=== PATIENT | female | born 1990 | race Caucasian/White ===

== ENCOUNTER 2018-08-25 16:27 | Outpatient (REF) | payer BC, SELFPAY ==
[2018-08-25 21:02] LABS: Abs Immature Grans 0.02 k/cumm (0.0-0.09); Absolute Basophil Count 0.02 k/cumm (0.0-0.2); Absolute Eosinophil Count 0.09 k/cumm (0.0-0.7); Absolute Lymphocyte Count 1.24 k/cumm (1.2-3.4); Absolute Monocyte Count 0.38 k/cumm (0.11-0.7); Absolute Neutrophil Count 6.11 k/cumm (1.2-6.7); Basophils % 0.3; Eosinophils % 1.1; HCT 40.2 % (36.0-46.0); HGB 13.3 g/dL (12.0-15.5); Immature Grans % 0.3; Lymphocytes % 15.8; Mean Corp. HGB Concentration 33.1 g/dL (32.0-36.0); Mean Corpuscular Hemoglobin 30.9 pg (27.0-33.0); Mean Corpuscular Volume 93.5 fL (80-95); Mean Platelet Volume 9.6 fL (8.0-11.0); Monocytes % 4.8; Neutrophils % 77.7; Platelet Count 260 x1000/uL (130-400); RBC Distribution Width 13.1 % (11.7-14.6); White Blood Cell Count 7.86 k/cumm (4.4-10.8)
[2018-08-25 21:33] LABS: Iron 47 ug/dL (50-175); Total Iron Binding Capacity 331 ug/dL (250-450); Transferrin Sat 14 % (15-50)
[2018-08-25 21:39] LABS: ALT 74 U/L (12-78); AST 38 U/L (15-37); Albumin 4.1 g/dL (3.4-5.0); Alkaline Phosphatase 111 U/L (46-116); Anion Gap 10.4 mmol/L (3-11); BUN 12 mg/dL (7-18); C-Reactive Protein 0.99 mg/dL (0.0-0.3); CO2 26.6 mmol/L (21.0-32.0); CREATININE 0.79 mg/dL (0.55-1.02); Calcium 9.3 mg/dL (8.5-10.1); Chloride 103 mmol/L (98-107); Glucose 93 mg/dL (70-100); Sodium 140 mmol/L (136-145); TSH (W/Ref FT4) 1.17 uIU/mL (0.358-3.74); Total Protein 7.3 g/dL (6.4-8.2)
[2018-08-25 21:44] LABS: ESR 16 MM/HR (0-20)
[2018-08-25 22:16] LABS: Bilirubin, Total 0.4 mg/dL (0.2-1.0); Ferritin 81 ng/mL (8-388); Vitamin B12 1093 pg/mL (193-986)
== END 2018-08-25 16:47 ==
LOC: NCHCN 16:27
PROVIDERS: PCP Nurse Practitioner; Visit Provider Nurse Practitioner
DX: R53.83 Other fatigue (principal)
CPT/HCPCS: 80053; 85652; 82607; 82728; 83540; 83550; 84443; 85025; 86140

== ENCOUNTER 2018-08-31 13:03 | Outpatient (CLI) | payer BC, SELFPAY ==
[2018-09-01 09:23] LABS: HIV-1/2 Ag & Ab Screen Negative (NEGAT)
[2018-09-02 14:17] LABS: TB Interpretation Negative (NEGAT); TB1 Ag minus Nil 0.01 IU/mL
== END 2018-08-31 13:23 ==
PROVIDERS: PCP Nurse Practitioner; Visit Provider Nurse Practitioner
DX: R53.83 Other fatigue (principal); R61 Generalized hyperhidrosis; N95.1 Menopausal and female climacteric states
CPT/HCPCS: 36415; 87389; 86480

== ENCOUNTER 2018-09-02 14:04 | Outpatient (REF) | payer BC, SELFPAY ==
[2018-09-06 11:45] LABS: Helicobacter pylori Ag, Feces Negative (NEGAT)
== END 2018-09-02 14:24 ==
LOC: NCHCN 14:04
PROVIDERS: PCP Nurse Practitioner; Visit Provider Nurse Practitioner
DX: R53.83 Other fatigue (principal); R61 Generalized hyperhidrosis; N95.1 Menopausal and female climacteric states
CPT/HCPCS: 87338

== ENCOUNTER 2018-11-01 15:47 | Outpatient (REF) | payer BC, SELFPAY ==
[2018-11-01 22:05] LABS: Iron 73 ug/dL (50-175); Total Iron Binding Capacity 334 ug/dL (250-450); Transferrin Sat 22 % (15-50)
[2018-11-01 22:21] LABS: HCT 40.8 % (36.0-46.0); HGB 13.7 g/dL (12.0-15.5); Mean Corp. HGB Concentration 33.6 g/dL (32.0-36.0); Mean Corpuscular Hemoglobin 30.6 pg (27.0-33.0); Mean Corpuscular Volume 91.1 fL (80-95); Platelet Count 251 x1000/uL (130-400); RBC 4.48 m/cumm (4.00-5.20); White Blood Cell Count 7.04 k/cumm (4.4-10.8)
[2018-11-01 22:22] LABS: ALT 76 U/L (12-78); AST 50 U/L (15-37); Ferritin 81 ng/mL (8-388)
[2018-11-01 22:40] LABS: C-Reactive Protein 0.92 mg/dL (0.0-0.3)
== END 2018-11-01 16:07 ==
LOC: NCHCN 15:47
PROVIDERS: PCP Nurse Practitioner; Visit Provider Nurse Practitioner Family
DX: R79.89 Other specified abnormal findings of blood chemistry (principal); Q79.6 Ehlers-Danlos syndromes; E61.1 Iron deficiency
CPT/HCPCS: 85027; 82728; 83540; 83550; 84450; 84460; 86140

== ENCOUNTER 2019-02-01 15:47 | Outpatient (CLI) | payer BC, SELFPAY ==
[2019-02-06 14:38] LABS: Metanephrine, Free <0.20 nmol/L (<0.50); Normetanephrine, Free 0.66 nmol/L (<0.90)
== END 2019-02-01 16:07 ==
PROVIDERS: PCP Nurse Practitioner; Visit Provider Nurse Practitioner Family
DX: N95.1 Menopausal and female climacteric states (principal); R61 Generalized hyperhidrosis
CPT/HCPCS: 36415; 83835

== ENCOUNTER 2019-05-17 21:44 | Emergency (ER) | payer BC, SELFPAY ==
[2019-05-17 22:39] VITALS: BP 157/74; PULSE 90; RESP 18; TEMP 36.6; O2SAT 97
--- NOTE | 2019-05-17 23:28 | W.ED.GENAD ---
Discharge Plan Disposition Patient Disposition: HOME Condition: Stable Discharge Details Chief Complaint: Sorethroat Clinical Impression: URI (upper respiratory infection) Primary Care Provider: Caitlin Hu ED Provider: Burton El Home Meds and New Rx's Prescriptions: No Action acetaminophen [Tylenol] 325 mg Tablet 1,000 mg PO PRN PRNRF: 0 naproxen 250 mg Tablet 3 RF: 0 Discharge Instructions Instructions: Upper Respiratory Infection (ED) Additional Instructions: It is recommended that you continue to take [id number] cough and cold medications, get plenty of rest, and stay well-hydrated during illness. Return to the emergency department immediately for any new or significant worsening of your symptoms otherwise follow-up with your primary care provider as needed for reassessment Stand Alone Forms: Work Release Referrals: Caitlin Hu [Primary Care Provider] - (As needed for reassessment if not improving the next week) Discharge Data Discharge Date/Time-TO BE ENTERED AT DEPARTURE: 05/17/19 23:50 Medical Decision Making Nasal congestion, cough, cold symptoms for 5 days with worsening sore throat over the past 2 to 3 days. Patient states using multiple [id number] medications which are not helping. Physical exam shows clear lung sounds, mild clear fluid behind right TM otherwise unremarkable TM bilateral, patient does have some postnasal drip and cobblestoning noted to the posterior pharynx otherwise unremarkable HEENT exam, no lymphadenopathy, no signs of epiglottitis, peritonsillar abscess, retropharyngeal abscess, or life-threatening airway infection. medical staff services coordinator initiated protocol for rapid strep testing which was negative. Feel the patient's symptoms were likely upper respiratory tract infection and infectious in nature. Did discuss with patient risk versus benefit of steroids and decided to give patient single dose of Decadron in the emergency department due to severity of sore throat. Return precautions discussed otherwise patient to follow-up with primary care provider. After discussion of diagnosis and plan of care patient has no further needs, questions, or concerns and states clear understanding to return to the emergency department for any worsening symptoms. HPI General Mode of arrival: ambulatory. Date/Time Provider Initiated Documentation: 05/17/19 23:19. Limitations to Documentation: no limitations. Information obtained by: patient and RN notes reviewed. History of Present Illness 29 year old F presents to the emergency department with the chief complaint of sore thraot, described as moderate, with intensity rated at 5. Quality is described as aching, and is localized to the mouth (sore throat). Patient started experiencing this day(s) (5) and it has been constant. No relieving factors improve symptom(s), No exacerbating factors reported . Patient did receive the following treatments prior to arrival, other (OTC meds ) Related Data Home Medications Medication Instructions Recorded Confirmed acetaminophen [Tylenol] 1,000 mg PO PRN PRN 05/17/19 05/17/19 naproxen 3 05/17/19 Allergies Allergy/AdvReac Type Severity Reaction Status Date / Time No Known Allergies Allergy Unverified 05/17/19 22:42 General Stated Complaint: Sorethroat DAVID: 4 Review of Systems Constitutional Constitutional: Reports chills, Denies headache(s) and Reports malaise ENT Ears, Nose, Mouth, and Throat: Denies change in voice, Denies otalgia, Denies headache(s), Reports nasal congestion and Reports sore throat Cardiovascular Cardiovascular: Denies chest pain Respiratory Respiratory: Denies chest congestion and Reports cough Neurologic Neurologic: Denies headache(s) [facility] Social History Smoking/Tobacco Use Status: Never Alcohol Intake: never Do you feel safe at home: Yes Do you feel safe in your relationship?: Yes Exam Const General: cooperative, healthy appearing, comfortable, no acute distress and not ill appearing Orientation: alert, awake and oriented x3 HENMT Head: normal to inspection and normocephalic Ears: hearing grossly normal bilaterally, external ears normal, TM's normal bilaterally and mastoids normal General nose exam: external nose normal and nares normal Face and sinus: normal facial exam and sinuses nontender Mouth: oral mucosae normal, lip normal, tongue normal, no audible dysphonia, no drooling and no trismus Throat: uvula midline, abnormal tonsil bilaterally erythema and hypertrophy 1+ and no peritonsillar masses Neck Neck: normal visual inspection, full ROM and no meningeal signs Resp Effort & Inspection: normal respiratory effort, able to speak in complete sentences and no stridor Auscultation: clear to auscultation bilaterally Cardio Rate: regular rate Rhythm: regular rhythm Heart Sounds: S1 normal and S2 normal Skin General skin exam: no rashes or lesions noted Course Vital Signs Vital signs: Vital Signs Temperature 36.6 C 05/17/19 22:39 Pulse 90 05/17/19 22:39 Respiratory Rate 18 05/17/19 22:39 Blood Pressure 157/74 H 05/17/19 22:39 Pulse Oximetry 97 05/17/19 22:39 Temperature 36.6 C 05/17/19 22:39 Temperature Source Temporal Artery Scan 05/17/19 22:39 Pulse 90 05/17/19 22:39 Respiratory Rate 18 05/17/19 22:39 Respiratory Effort 05/17/19 22:44 Blood Pressure 157/74 H 05/17/19 22:39 Pulse Oximetry 97 05/17/19 22:39 Oxygen Delivery Method Room Air 05/17/19 22:39 Oxygen Flow Rate 0 05/17/19 22:39 Pain Level 5 05/17/19 22:39 Lab/Test Results Lab/Test Results: 05/17/19 22:45 Tonsil - Not Specified Streptococcus Screen (MUKESH) - Pending POC Strep Test-ASIYA(Rapid) Start: 05/17/19 22:43 Freq: .Rapid Strep Test Status: Active Protocol: Document 05/17/19 23:01 MM (Rec: 05/17/19 23:01 MM [id number]) Strep test-ASIYA(Rapid)-POC POC-Strep test-ASIYA (Rapid) Negative POC-Strep test-ASIYA (Rapid) Negative
[2019-05-17] MEDS: Dexamethasone 10 MG/ML VIAL PO (23:30)
== END 2019-05-17 23:50 | disposition home or self-care (01) ==
PROVIDERS: Emergency Provider Nurse Practitioner Family; PCP Nurse Practitioner
DX: J06.9 Acute upper respiratory infection, unspecified (principal)
CPT/HCPCS: 87880; 99283; 87081; J1100

== ENCOUNTER 2020-04-15 11:36 | Emergency (ER) | payer BC, SELFPAY ==
[2020-04-15] VITALS (56 sets, daily range): BP systolic 136–153; BP diastolic 85–106; PULSE 75–105; RESP 8–32; TEMP 36.6; O2SAT 95–99
--- NOTE | 2020-04-15 11:30 | RT.EKG_ITS ---
APPROVED REPORT Exam: Resting ECG Patient Location: E HR:91 bpm ECG Measurements Heart Rate 91 AXIS AR 143 P 79 QRSd 92 QRS 53 QT 348 T 22 QTc 430 Conclusion Sinus rhythm...normal P axis, V-rate 60- 99 sinus rhythm at 91, normal axis, no acute ischemic changes, artifact V3, nondiagnostic EKG
--- NOTE | 2020-04-15 11:48 | ED.GENADUL_ITS ---
Discharge Plan Disposition Patient Disposition: HOME Condition: Good Discharge Details Clinical Impression: Intercostal muscle strain, SVT (supraventricular tachycardia) Primary Care Provider: Caitlin Hu ED Provider: Ke Hays Home Meds and New Rx's Prescriptions: Continued acetaminophen [Tylenol] 325 mg Tablet 1,000 mg PO PRN PRNRF: 0 naproxen 250 mg Tablet 250 mg PO DAILY RF: 0 citalopram [Celexa] 10 mg Tablet 10 mg PO DAILY RF: 0 dextroamphetamine [Dexedrine Spansule] 10 mg Capsule, Extended Release 10 mg PO DAILY RF: 0 bupropion HCl [Wellbutrin XL] 150 mg Tablet Extended Release 24 Hr 150 mg PO DAILY RF: 0 Discharge Instructions Instructions: Supraventricular Tachycardia (GEN) Referrals: Caitlin Hu [Primary Care Provider] - (call wednesday for follow up 04/16/20) Discharge Data Discharge Date/Time-TO BE ENTERED AT DEPARTURE: 04/15/20 18:00 Discharge Physician: Layla Woodall Medical Decision Making Neetu Henderson is a 30 y/o woman without reported h/o major medical problems who presented to the emergency department with chest pain. On exam Pt is well and non-toxic appearing, benign cardiopulmonary exam. Concern for MSK etiology, costochrondritis, PNA, PTX. Doubt ACS, PE. Exam/hx not c/w acute aortic process, sepsis. Plan for EKG, cxr, screening labs, telemetry. Will monitor and reassess. Labs, EKG, non-diagnostic. D-dimer elevated, plan for CT, Pt amenable. CT negative. Pt with run of apparent SVT on rhythm strip, <1 min. Pt noted that she felt a sensation of her heart racing during this event, states that this has happened several times in the past few months, seems to be happening more frequently. Always lasts <1min. Has not sought medical eval for this. Doubt SVT related to CC of chest pain, however I am concerned that Pt should undergo echo prior to discharge for SVT without prior eval in setting of chest pain. No echo available today, plan for admission. Pt amenable. Pt admitted to Dr. Hays. Clinical Impression: chest pain, SVT Disposition: [facility] in Medical Records Medical records reviewed: Yes I reviewed the patient's medical records. Imaging Data Radiologic Study: Attestation: I personally reviewed and interpreted this imaging study as follows: Radiologist's impression: Exam(s) PROCEDURE INFORMATION: Exam: CT Angiography Chest With Contrast Exam date and time: 04/15/2020 1:08 PM Age: 30 years old Clinical indication: Chest pain TECHNIQUE: Imaging protocol: Computed tomographic angiography of the chest with intravenous contrast. 3D rendering (Not supervised by radiologist): MIP and/or 3D reconstructed images were created by the technologist. COMPARISON: No relevant prior studies available. FINDINGS: Pulmonary arteries: Normal. Contrast opacification is diagnostic. Aorta: Normal. Lungs: Normally expanded and clear. Pleural space: Normal. Heart: Normal. Coronary arteries: Normal. Lymph nodes: No axillary, mediastinal or hilar adenopathy. Bones/joints: Normal. Soft tissues: Normal. IMPRESSION: Negative for pulmonary arterial embolism. No abnormalities in the chest. Lab Data Lab results reviewed: Yes I reviewed the patient's lab results. Labs: Laboratory Tests Range/Units 04/15/20 04/15/20 04/15/20 12:00 12:00 12:00 WBC (4.4-10.8) 10^3/uL 7.76 RBC (3.93-5.22) 10^6/uL 4.56 Hgb (11.2-15.7) g/dL 14.3 Hct (36.0-46.0) % 42.0 MCV (80-95) fL 92.1 MCH (27.0-33.0) pg 31.4 MCHC (32.0-36.0) % 34.0 RDW (11.7-14.6) % 11.7 Plt Count (130-400) 10^3/uL 268 MPV (8.0-11.0) fL 9.2 Immature Gran % 0.5 Neutrophils % 72.8 Lymphocytes % 20.7 Monocytes % 4.9 Eosinophils % 0.6 Basophils % 0.5 Nucleated RBC % % 0 Absolute Neutrophils (1.2-6.7) 10^3/uL 5.64 Absolute Lymphocytes (1.2-3.4) 10^3/uL 1.61 Absolute Monocytes (0.1-0.8) 10^3/uL 0.38 Absolute Eosinophils (0.0-0.7) 10^3/uL 0.05 Absolute Basophils (0.0-0.2) 10^3/uL 0.04 D-Dimer (<500) ng/mlFEU 233 Sodium (136-145) mmol/L 137 Potassium (3.5-5.1) mmol/L 3.6 Chloride (98-107) mmol/L 103 Carbon Dioxide (21.0-32.0) mmol/L 26.8 Anion Gap (3-11) mmol/L 7.2 BUN (7-18) mg/dL 11 Creatinine (0.55-1.02) mg/dL 0.84 Estimated GFR/1.73 m2 (mL/min/1.73m2) >= 60.00 Glucose (74-106) mg/dL 92 Calcium (8.5-10.1) mg/dL 9.3 Total Bilirubin (0.2-1.0) mg/dL 0.5 AST (15-37) U/L 14 L ALT (14-59) U/L 21 Alkaline Phosphatase (46-116) U/L 86 Troponin I (<0.06) ng/mL < 0.05 Total Protein (6.4-8.2) g/dL 7.3 Albumin (3.4-5.0) g/dL 4.3 TSH (0.36-3.74) uIU/mL Range/Units 04/15/20 04/15/20 12:00 16:35 WBC (4.4-10.8) 10^3/uL RBC (3.93-5.22) 10^6/uL Hgb (11.2-15.7) g/dL Hct (36.0-46.0) % MCV (80-95) fL MCH (27.0-33.0) pg MCHC (32.0-36.0) % RDW (11.7-14.6) % Plt Count (130-400) 10^3/uL MPV (8.0-11.0) fL Immature Gran % Neutrophils % Lymphocytes % Monocytes % Eosinophils % Basophils % Nucleated RBC % % Absolute Neutrophils (1.2-6.7) 10^3/uL Absolute Lymphocytes (1.2-3.4) 10^3/uL Absolute Monocytes (0.1-0.8) 10^3/uL Absolute Eosinophils (0.0-0.7) 10^3/uL Absolute Basophils (0.0-0.2) 10^3/uL D-Dimer (<500) ng/mlFEU Sodium (136-145) mmol/L Potassium (3.5-5.1) mmol/L Chloride (98-107) mmol/L Carbon Dioxide (21.0-32.0) mmol/L Anion Gap (3-11) mmol/L BUN (7-18) mg/dL Creatinine (0.55-1.02) mg/dL Estimated GFR/1.73 m2 (mL/min/1.73m2) Glucose (74-106) mg/dL Calcium (8.5-10.1) mg/dL Total Bilirubin (0.2-1.0) mg/dL AST (15-37) U/L ALT (14-59) U/L Alkaline Phosphatase (46-116) U/L Troponin I (<0.06) ng/mL < 0.05 Total Protein (6.4-8.2) g/dL Albumin (3.4-5.0) g/dL TSH (0.36-3.74) uIU/mL 1.29 ECG Data Attestation: I personally reviewed and interpreted this ECG (s) as follows: Interpretation: EKG shows sinus rhythm at 91, normal axis, no acute ischemic changes, artifact V3, nondiagnostic EKG HPI General Mode of arrival: ambulatory . Date/Time Provider Initiated Documentation: 04/15/20 11:48 . Limitations to Documentation: no limitations . Information obtained by: patient, RN notes reviewed and old records reviewed . HPI Narrative: Neetu Henderson is a 30 y/o woman without reported h/o major medical problems presenting to the emergency department with chest pain. Pt reports that since yesterday afternoon she has had sharp chest pain to the left of her st ernum that radiates into her left shoulder. Pt reports that pain is worsened with movement or deep breath, and improves but does not fully resolve with staying still. She denies any exertional component Pt is unsure what she was doing at onset of pain, denies trauma or known inciting event. Never with similar pain in the past. She denies any other pain, fever, SOB, cough, vomiting, weakness, numbness. Was previously in her usual state of health. Has been eating and drinking as usual. No recent travel or immobilization. No known covid contacts. Related Data Home Medications Medication Instructions Recorded Confirmed acetaminophen [Tylenol] 1,000 mg PO PRN PRN 05/17/19 04/15/20 naproxen 250 mg PO DAILY 05/17/19 04/15/20 bupropion HCl [Wellbutrin XL] 150 mg PO DAILY 04/15/20 04/15/20 citalopram [Celexa] 10 mg PO DAILY 04/15/20 04/15/20 dextroamphetamine [Dexedrine 10 mg PO DAILY 04/15/20 04/15/20 Spansule] Allergies Allergy/AdvReac Type Severity Reaction Status Date / Time No Known Allergies Allergy Unverified 04/15/20 11:51 General DAVID: 4 Review of Systems Narrative: Constitutional: denies fevers Eyes: denies eye pain ENT: denies ear pain, dental pain, sore throat Cardiovascular: denies edema, reports chest pain Respiratory: denies SOB, cough GI: denies abdominal pain, vomiting, diarrhea : denies flank pain MSK: denies back pain, neck pain, arthralgias, myalgias Skin: denies rash Neuro: denies headaches, numbness, weakness PFSH Social History Smoking/Tobacco Use Status: Never Alcohol Intake: never Do you feel safe at home: Yes Do you feel safe in your relationship?: Yes Exam Narrative Exam Narrative: Constitutional: well and [id number], pleasant, conversing normally HENT: head atraumatic/normocephalic/normal inspection, mucous membranes moist Eyes: conjunctiva normal, sclera normal, pupils 3mm b/l Neck: no stridor, normal ROM, trachea midline Chest: normal inspection, non-tender to palpation Resp: normal work of breathing, LCTAB Cardio: normal rate, normal rhythm, no murmur appreciated GI: abdomen soft, non-tender, non-distended Back: normal inspection, no rash Skin: warm, dry, normal color, no rash Neuro: alert, not altered, grossly non-focal, normal tone Ext: no edema, no posterior calf TTP Psych: normal mood, normal affect, normal behavior
[2020-04-15 12:16] LABS: Abs Immature Grans 0.04 10^3/uL (0.0-0.06); Absolute Basophil Count 0.04 10^3/uL (0.0-0.2); Absolute Eosinophil Count 0.05 10^3/uL (0.0-0.7); Absolute Lymphocyte Count 1.61 10^3/uL (1.2-3.4); Absolute Monocyte Count 0.38 10^3/uL (0.1-0.8); Absolute Neutrophil Count 5.64 10^3/uL (1.2-6.7); Basophils % 0.5; Eosinophils % 0.6; HGB 14.3 g/dL (11.2-15.7); Immature Grans % 0.5; Lymphocytes % 20.7; MCH 31.4 pg (27.0-33.0); MCV 92.1 fL (80-95); MPV 9.2 fL (8.0-11.0); Monocytes % 4.9; Neutrophils % 72.8; Nucleated RBC 0 %; Platelet Count 268 10^3/uL (130-400); RBC 4.56 10^6/uL (3.93-5.22); RDW 11.7 % (11.7-14.6); RDW-SD 39.4 fL; WBC 7.76 10^3/uL (4.4-10.8)
[2020-04-15 12:31] LABS: ALT 21 U/L (14-59); AST 14 U/L (15-37); Albumin 4.3 g/dL (3.4-5.0); Alkaline Phosphatase 86 U/L (46-116); Anion Gap 7.2 mmol/L (3-11); BUN 11 mg/dL (7-18); Bilirubin, Total 0.5 mg/dL (0.2-1.0); CO2 26.8 mmol/L (21.0-32.0); CREATININE 0.84 mg/dL (0.55-1.02); Calcium 9.3 mg/dL (8.5-10.1); Chloride 103 mmol/L (98-107); Glucose 92 mg/dL (74-106); Potassium 3.6 mmol/L (3.5-5.1); Sodium 137 mmol/L (136-145); Total Protein 7.3 g/dL (6.4-8.2)
[2020-04-15 12:36] LABS: Troponin I < 0.05 ng/mL (<0.06)
--- NOTE | 2020-04-15 12:45 | DI.CT_ITS ---
EXAM: CT CHEST PE CTA CLINICAL HISTORY: chest pain. TECHNIQUE: Imaging Protocol: Axial CT angiography was performed with multi-slice acquisition and mu lti-planar and/or 3D reconstructions. CONTRAST MATERIAL: Intravenous: Omnipaque 350 Contrast volume:100 cc COMPARISON: No exams were available for comparison FINDINGS: Pulmonary Arteries: No evidence of filling defect to suggest pulmonary emboli. Tracheobronchial tree: Patent where visualized. Mediastinum and Neda: No dominant adenopathy or fluid collection. Pulmonary parenchyma: No consolidation or dominant measurable mass. No architectural distortion. Pleura: No effusion or pneumothorax. Heart: The heart is not dilated. No coronary artery calcifications are seen. Aorta: Thoracic aorta non-dilated. Upper abdomen: Unremarkable. Bones: Normal. Tubes, Catheters, and Lines: None IMPRESSION: No evidence of pulmonary embolism or other acute abnormality.. RADIATION DOSE DELIVERED: Total DLP DATA REPOSITORY: All CT scans at this facility are submitted to the National Radiology Data Registry (NRDR) Dose Index Registry (DIR) with the [employer] (ACR). RADIATION OPTIMIZATION: All CT scans at this facility use at least one of these dose optimization te chniques: automated exposure control; mA and/or kV adjustment per patient size (includes targeted exa ms where dose is matched to clinical indication); or iterative reconstruction.
[2020-04-15 12:46] LABS: D-Dimer 233 ng/mlFEU (<500)
[2020-04-15] MEDS: Omnipaque 350 MG/ML 100 ML BTL IJ (13:08)
[2020-04-15] MEDS: Normal Saline - Diluent 50 ML VIAL IV (13:09)
[2020-04-15] MEDS: Normal Saline Flush 10 ML SYR IVP (13:10)
--- NOTE | 2020-04-15 13:52 | DI.VRAD_ITS ---
PROCEDURE INFORMATION: Exam: CT Angiography Chest With Contrast Exam date and time: 04/15/2020 1:08 PM Age: 30 years old Clinical indication: Chest pain TECHNIQUE: Imaging protocol: Computed tomographic angiography of the chest with intravenous contrast. 3D rendering (Not supervised by radiologist): MIP and/or 3D reconstructed images were created by the technologist. COMPARISON: No relevant prior studies available. FINDINGS: Pulmonary arteries: Normal. Contrast opacification is diagnostic. Aorta: Normal. Lungs: Normally expanded and clear. Pleural space: Normal. Heart: Normal. Coronary arteries: Normal. Lymph nodes: No axillary, mediastinal or hilar adenopathy. Bones/joints: Normal. Soft tissues: Normal. IMPRESSION: Negative for pulmonary arterial embolism. No abnormalities in the chest. Dictated and Authenticated by: Javan Yang MD. Ordering:GUS Farrar MD
[2020-04-15 16:08] LABS: TSH (W/Ref FT4) 1.29 uIU/mL (0.36-3.74)
--- NOTE | 2020-04-15 16:50 | W.PM.DS.N ---
Date of service: 04/15/20 Time of Service: 16:50 DS: Diagnosis Discharge Diagnosis (1) Intercostal muscle strain: Status: Acute (2) SVT (supraventricular tachycardia): Status: Chronic Discharge Plan Disposition Patient Disposition: HOME Condition: Good Discharge Details Chief Complaint: Chest Pain Clinical Impression: Intercostal muscle strain, SVT (supraventricular tachycardia) Primary Care Provider: Caitlin Hu ED Provider: Leni Coffman Home Meds and New Rx's Prescriptions: Continued acetaminophen [Tylenol] 325 mg Tablet 1,000 mg PO PRN PRNRF: 0 naproxen 250 mg Tablet 250 mg PO DAILY RF: 0 citalopram [Celexa] 10 mg Tablet 10 mg PO DAILY RF: 0 dextroamphetamine [Dexedrine Spansule] 10 mg Capsule, Extended Release 10 mg PO DAILY RF: 0 bupropion HCl [Wellbutrin XL] 150 mg Tablet Extended Release 24 Hr 150 mg PO DAILY RF: 0 Discharge Instructions Instructions: Supraventricular Tachycardia (GEN) Discharge Data Discharge Physician: Layla Woodall DS: Summary Status at Discharge Mental Status: mental status grossly normal Mood: congruent mood Affect: normal affect Exam Const General: cooperative and no acute distress HENMT Head: normocephalic Chest Chest: normal inspection of the chest and other (No costochondral tenderness with compression) Resp Effort & Inspection: normal respiratory effort Auscultation: clear to auscultation bilaterally Cardio Jugular venous pressure: no JVD Rate: regular rate Rhythm: regular rhythm Heart Sounds: S1 normal and S2 normal Neuro General: patient alert and patient oriented x3 Cranial Nerves: CN's II-XI intact bilaterally Cognition: normal cognition Speech: speech normal Extrem General: no clubbing, cyanosis or edema Psych Appearance: grossly normal Mental Status: mental status grossly normal Mood: congruent mood Affect: normal affect Attitude: cooperative DS: Data Vitals/I&O Vitals and I&O: Vital Signs Temperature 36.6 C 04/15/20 11:47 Temperature Source Temporal Artery Scan 04/15/20 11:47 Pulse 79 04/15/20 16:01 Pulse 76 04/15/20 16:10 Respiratory Rate 16 04/15/20 16:22 Respiratory Effort Non-Labored 04/15/20 16:22 Respiratory Depth Normal 04/15/20 16:22 Respiratory Pattern Normal 04/15/20 16:22 Blood Pressure 143/106 H 04/15/20 16:01 Blood Pressure Mean 114 04/15/20 16:01 Blood Pressure Position Sitting 04/15/20 11:47 Pulse Oximetry 96 04/15/20 16:10 Oxygen Delivery Method Room Air 04/15/20 11:47 Oxygen Flow Rate 0 04/15/20 11:47 Pain Level 6 04/15/20 16:22 Intake & Output 04/14/20 04/15/20 04/15/20 23:59 11:59 23:59 Weight 90.718 kg Data Completed and Pending Labs on day of discharge: Labs from last 24 hours 04/15/20 04/15/20 04/15/20 16:35 12:00 12:00 WBC RBC Hgb Hct MCV MCH MCHC RDW Plt Count MPV Immature Gran % Neutrophils % Lymphocytes % Monocytes % Eosinophils % Basophils % Nucleated RBC % Absolute Neutrophils Absolute Lymphocytes Absolute Monocytes Absolute Eosinophils Absolute Basophils D-Dimer 233 Sodium Potassium Chloride Carbon Dioxide Anion Gap BUN Creatinine Estimated GFR/1.73 m2 Glucose Calcium Total Bilirubin AST ALT Alkaline Phosphatase Troponin I Pending Total Protein Albumin TSH 1.29 04/15/20 04/15/20 12:00 12:00 WBC 7.76 RBC 4.56 Hgb 14.3 Hct 42.0 MCV 92.1 MCH 31.4 MCHC 34.0 RDW 11.7 Plt Count 268 MPV 9.2 Immature Gran % 0.5 Neutrophils % 72.8 Lymphocytes % 20.7 Monocytes % 4.9 Eosinophils % 0.6 Basophils % 0.5 Nucleated RBC % 0 Absolute Neutrophils 5.64 Absolute Lymphocytes 1.61 Absolute Monocytes 0.38 Absolute Eosinophils 0.05 Absolute Basophils 0.04 D-Dimer Sodium 137 Potassium 3.6 Chloride 103 Carbon Dioxide 26.8 Anion Gap 7.2 BUN 11 Creatinine 0.84 Estimated GFR/1.73 m2 >= 60.00 Glucose 92 Calcium 9.3 Total Bilirubin 0.5 AST 14 L ALT 21 Alkaline Phosphatase 86 Troponin I < 0.05 Total Protein 7.3 Albumin 4.3 TSH [facility] Social History Smoking/Tobacco Use Status: Never Alcohol Intake: never Do you feel safe at home: Yes Do you feel safe in your relationship?: Yes
[2020-04-15 17:05] LABS: Troponin I < 0.05 ng/mL (<0.06)
--- NOTE | 2020-04-15 17:05 | W.PM.DS.N ---
DS: Diagnosis Discharge Diagnosis (1) Intercostal muscle strain: Status: Acute (2) SVT (supraventricular tachycardia): Status: Chronic Discharge Plan Disposition Patient Disposition: HOME Condition: Good Discharge Details Chief Complaint: Chest Pain Clinical Impression: Intercostal muscle strain, SVT (supraventricular tachycardia) Primary Care Provider: Caitlin Hu ED Provider: Leni Coffman Home Meds and New Rx's Prescriptions: Continued acetaminophen [Tylenol] 325 mg Tablet 1,000 mg PO PRN PRNRF: 0 naproxen 250 mg Tablet 250 mg PO DAILY RF: 0 citalopram [Celexa] 10 mg Tablet 10 mg PO DAILY RF: 0 dextroamphetamine [Dexedrine Spansule] 10 mg Capsule, Extended Release 10 mg PO DAILY RF: 0 bupropion HCl [Wellbutrin XL] 150 mg Tablet Extended Release 24 Hr 150 mg PO DAILY RF: 0 Discharge Instructions Instructions: Supraventricular Tachycardia (GEN) Discharge Data Discharge Physician: Layla Woodall DS: Summary Status at Discharge Functional status at discharge: independent ambulation Overall status at discharge: patient is progressing back to baseline Mental Status: mental status grossly normal Speech and Movement: speech and movement normal Mood: congruent mood Affect: normal affect Exam Psych Mental Status: mental status grossly normal Speech and Movement: speech and movement normal Mood: congruent mood Affect: normal affect DS: Data Vitals/I&O Vitals and I&O: Vital Signs Temperature 36.6 C 04/15/20 11:47 Temperature Source Temporal Artery Scan 04/15/20 11:47 Pulse 84 04/15/20 16:16 Pulse 96 H 04/15/20 16:50 Respiratory Rate 22 04/15/20 16:50 Respiratory Effort Non-Labored 04/15/20 16:22 Respiratory Depth Normal 04/15/20 16:22 Respiratory Pattern Normal 04/15/20 16:22 Blood Pressure 144/95 H 04/15/20 16:16 Blood Pressure Mean 105 04/15/20 16:16 Blood Pressure Position Sitting 04/15/20 11:47 Pulse Oximetry 95 04/15/20 16:50 Oxygen Delivery Method Room Air 04/15/20 11:47 Oxygen Flow Rate 0 04/15/20 11:47 Pain Level 6 04/15/20 16:22 Intake & Output 04/14/20 04/15/20 04/15/20 23:59 11:59 23:59 Weight 90.718 kg Data Completed and Pending Labs on day of discharge: Labs from last 24 hours 04/15/20 04/15/20 04/15/20 16:35 12:00 12:00 WBC RBC Hgb Hct MCV MCH MCHC RDW Plt Count MPV Immature Gran % Neutrophils % Lymphocytes % Monocytes % Eosinophils % Basophils % Nucleated RBC % Absolute Neutrophils Absolute Lymphocytes Absolute Monocytes Absolute Eosinophils Absolute Basophils D-Dimer 233 Sodium Potassium Chloride Carbon Dioxide Anion Gap BUN Creatinine Estimated GFR/1.73 m2 Glucose Calcium Total Bilirubin AST ALT Alkaline Phosphatase Troponin I Pending Total Protein Albumin TSH 1.29 04/15/20 04/15/20 12:00 12:00 WBC 7.76 RBC 4.56 Hgb 14.3 Hct 42.0 MCV 92.1 MCH 31.4 MCHC 34.0 RDW 11.7 Plt Count 268 MPV 9.2 Immature Gran % 0.5 Neutrophils % 72.8 Lymphocytes % 20.7 Monocytes % 4.9 Eosinophils % 0.6 Basophils % 0.5 Nucleated RBC % 0 Absolute Neutrophils 5.64 Absolute Lymphocytes 1.61 Absolute Monocytes 0.38 Absolute Eosinophils 0.05 Absolute Basophils 0.04 D-Dimer Sodium 137 Potassium 3.6 Chloride 103 Carbon Dioxide 26.8 Anion Gap 7.2 BUN 11 Creatinine 0.84 Estimated GFR/1.73 m2 >= 60.00 Glucose 92 Calcium 9.3 Total Bilirubin 0.5 AST 14 L ALT 21 Alkaline Phosphatase 86 Troponin I < 0.05 Total Protein 7.3 Albumin 4.3 TSH [facility] Social History Smoking/Tobacco Use Status: Never Alcohol Intake: never Do you feel safe at home: Yes Do you feel safe in your relationship?: Yes
--- NOTE | 2020-04-15 17:11 | W.MEDCONSULT ---
Date of service: 04/15/20 Time of Service: 17:23 Assessment and Plan Assessment and plan (1) SVT (supraventricular tachycardia): Status: Chronic Assessment and plan: Occurs intermittently. Has always resolved on her own Did discuss valsalva maneuver and unilateral carotid massage for any episode that does not resolve spontaneously. (2) Intercostal muscle strain: Status: Acute Assessment and plan: She has Naprosyn that she takes on occassion. Suggested she take one when she returns home and then prn if it helps with the current pain issue. Return for any worsening symptoms, SOA. History of Present Illness History of Present Illness Chief Complaint: Chest pain Narrative: This is a 30 yo with h/o Depression and Sruthi-Danlos syndrome. She presented with sharp L sided chest pain located beneath the L breast and radiated to L shoulder. The pain would occur with breath. No pain or minimal pain with holding her breath. CTA chest and CXR were unremarkable in the ED. Lab also unremarkable. She was going to be discharged but then had a short run of SVT. She stated that she felt her heart pounding during that time and that this occurs intermittently. She did not develop SOA during the run of SVT. She agreed to stay but after speaking with her and reviewing findings, she and I both agreed to discharge with close PCP follow-up. Her symptoms appear to be related to an intercostal muscle strain or inflammation. Review of Systems All systems reviewed & are unremarkable except as noted in HPI and below PFSH Social History Smoking/Tobacco Use Status: Never Alcohol Intake: never Do you feel safe at home: Yes Do you feel safe in your relationship?: Yes Exam Const General: cooperative, healthy appearing and no acute distress Nutritional Appearance: overweight Orientation: alert and oriented x3 Eyes Sclera: sclerae normal Pupils: PERRL Chest Chest: normal inspection of the chest and other (No tenderness to compress of rib cage on left or at costochondral margins.) Resp Effort & Inspection: normal respiratory effort Auscultation: clear to auscultation bilaterally Cardio Jugular venous pressure: no JVD Rate: regular rate Rhythm: regular rhythm Heart Sounds: S1 normal and S2 normal Neuro General: patient alert and patient oriented x3 Cranial Nerves: CN's II-XI intact bilaterally Speech: speech normal Motor: muscle tone normal throughout Extrem General: no clubbing, cyanosis or edema Psych Appearance: grossly normal Mental Status: mental status grossly normal Speech and Movement: speech and movement normal Mood: congruent mood Affect: normal affect Attitude: cooperative Thought Process: normal Thought Content: normal Results Last Vital Signs Temp 36.6 C 04/15/20 11:47 Pulse 84 04/15/20 16:16 Resp 22 04/15/20 16:50 BP 144/95 H 04/15/20 16:16 Pulse Ox 95 04/15/20 16:50 Labs Result diagrams: 04/15/20 12:00 04/15/20 12:00 Labs: Laboratory Results - last 24 hr 04/15/20 04/15/20 04/15/20 12:00 12:00 12:00 WBC 7.76 RBC 4.56 Hgb 14.3 Hct 42.0 MCV 92.1 MCH 31.4 MCHC 34.0 RDW 11.7 Plt Count 268 MPV 9.2 Immature Gran % 0.5 Neutrophils % 72.8 Lymphocytes % 20.7 Monocytes % 4.9 Eosinophils % 0.6 Basophils % 0.5 Nucleated RBC % 0 Absolute Neutrophils 5.64 Absolute Lymphocytes 1.61 Absolute Monocytes 0.38 Absolute Eosinophils 0.05 Absolute Basophils 0.04 D-Dimer 233 Sodium 137 Potassium 3.6 Chloride 103 Carbon Dioxide 26.8 Anion Gap 7.2 BUN 11 Creatinine 0.84 Estimated GFR/1.73 m2 >= 60.00 Glucose 92 Calcium 9.3 Total Bilirubin 0.5 AST 14 L ALT 21 Alkaline Phosphatase 86 Troponin I < 0.05 Total Protein 7.3 Albumin 4.3 TSH 04/15/20 04/15/20 12:00 16:35 WBC RBC Hgb Hct MCV MCH MCHC RDW Plt Count MPV Immature Gran % Neutrophils % Lymphocytes % Monocytes % Eosinophils % Basophils % Nucleated RBC % Absolute Neutrophils Absolute Lymphocytes Absolute Monocytes Absolute Eosinophils Absolute Basophils D-Dimer Sodium Potassium Chloride Carbon Dioxide Anion Gap BUN Creatinine Estimated GFR/1.73 m2 Glucose Calcium Total Bilirubin AST ALT Alkaline Phosphatase Troponin I < 0.05 Total Protein Albumin TSH 1.29
== END 2020-04-15 18:00 | disposition home or self-care (01) ==
PROVIDERS: Student in an Organized Health Care Education/Training Program; Emergency Provider Family Medicine; PCP Nurse Practitioner
DX: S29.011A Strain of muscle and tendon of front wall of thorax, initial encounter (principal); X58.XXXA Exposure to other specified factors, initial encounter; I47.1 Supraventricular tachycardia
CPT/HCPCS: 71275; 80053; 93005; 99217; 99283; 99285; 84443; 84484; 85025; 85379; 93010; 99284; J3490

== ENCOUNTER 2020-06-11 15:52 | Outpatient (REF) | payer BC, SELFPAY ==
[2020-06-17 11:03] LABS: SARS-CoV-2 RNA Undetected (Undetected); SARS-CoV-2 Specimen Source Nasal
== END 2020-06-11 16:12 ==
LOC: NCHCN 15:52
PROVIDERS: PCP Nurse Practitioner; Visit Provider Nurse Practitioner Family
DX: Z20.828 Contact with and (suspected) exposure to other viral communicable diseases (principal)
CPT/HCPCS: U0003

== ENCOUNTER 2020-07-10 14:31 | Outpatient (REF) | payer BC, SELFPAY ==
[2020-07-13 16:35] LABS: COVID-19 RT-PCR Result NEGATIVE (Negative)
== END 2020-07-10 14:51 ==
LOC: NCHCN 14:31
PROVIDERS: PCP Nurse Practitioner; Visit Provider Nurse Practitioner Family
DX: Z20.828 Contact with and (suspected) exposure to other viral communicable diseases (principal)
CPT/HCPCS: U0003

== ENCOUNTER 2020-09-19 13:46 | Outpatient (REF) | payer BC, SELFPAY ==
[2020-09-21 09:05] LABS: COVID-19 RT-PCR UVMMC Result Negative (Negative)
== END 2020-09-19 13:47 | disposition home or self-care (01) ==
LOC: NCHCN 13:46
PROVIDERS: PCP Nurse Practitioner Family; Visit Provider Nurse Practitioner Family
DX: Z20.822 Contact with and (suspected) exposure to COVID-19 (principal)
CPT/HCPCS: U0003

== ENCOUNTER 2021-10-01 16:35 | Outpatient (REF) | payer BC, SELFPAY ==
--- NOTE | 2021-10-01 12:15 | PAPFT_PTH ---
PATIENT: Neetu Henderson LOC: [facility] U#:[id number] AGE/SX: 31/F ROOM: RE10/01/[address]: Sharda Callahan : 1990 BED: DIS: 10/01/2021 SPEC #: [id number] RECD: 10/02/21 13:00 STATUS: NADINE REAleks #: [id number] PHIL: 10/01/21 12:[address]: Sharda Callahan DEPT: [facility] Cytology RECD BY: Emelia Zazueta Tissues: 1 - CX/ENDOCX FOR PAP SMEARS Procedures: PAP THIN PREP/UVM Screening HPV DNA PROBE Comments: [id number] (CHLAMYDIA/GC)
[2021-10-01 21:47] LABS: HCT 39.5 % (36.0-46.0); HGB 12.7 g/dL (11.2-15.7); MCH 30.1 pg (27.0-33.0); MCHC 32.2 % (32.0-36.0); MCV 93.6 fL (80-95); MPV 9.7 fL (8.0-11.0); Platelet Count 315 10^3/uL (130-400); RBC 4.22 10^6/uL (3.93-5.22); RDW 11.9 % (11.7-14.6); RDW-SD 41.2 fL; WBC 6.43 10^3/uL (4.4-10.8)
[2021-10-01 21:56] LABS: Iron 177 ug/dL (50-170); Total Iron Binding Capacity 369 ug/dL (250-450); Transferrin Sat 48 % (15-50)
[2021-10-01 22:24] LABS: ALT 24 U/L (14-59); AST 17 U/L (15-37); Albumin 4.2 g/dL (3.4-5.0); Alkaline Phosphatase 84 U/L (46-116); Anion Gap 11.8 mmol/L (3-11); BUN 13 mg/dL (7-18); Bilirubin, Total 0.6 mg/dL (0.2-1.0); CO2 25.2 mmol/L (21.0-32.0); CREATININE 0.8 mg/dL (0.55-1.02); Calcium 9.4 mg/dL (8.5-10.1); Chloride 103 mmol/L (98-107); Glucose 96 mg/dL (74-106); Sodium 140 mmol/L (136-145); TSH (W/Ref FT4) 1.29 uIU/mL (0.36-3.74); Total Protein 7.2 g/dL (6.4-8.2); Vitamin B12 378 pg/mL (193-986)
[2021-10-03 15:21] LABS: Chlamydia Result Negative (Negative); GC Result Negative (Negative)
== END 2021-10-01 16:36 | disposition home or self-care (01) ==
LOC: NCHCN 16:35
PROVIDERS: PCP Nurse Practitioner Family; Visit Provider Nurse Practitioner Family
DX: R53.83 Other fatigue (principal); F41.9 Anxiety disorder, unspecified; Z12.4 Encounter for screening for malignant neoplasm of cervix; Z11.51 Encounter for screening for human papillomavirus (HPV); Z11.3 Encounter for screening for infections with a predominantly sexual mode of transmission
CPT/HCPCS: 80053; 85027; 87491; 87591; 88142; 82607; 83540; 83550; 84443; 87624

== ENCOUNTER 2021-12-10 08:47 | Outpatient (CLI) | payer BC, SELFPAY ==
--- NOTE | 2021-12-10 08:00 | DI.RAD_ITS ---
Exam(s) XR ANKLE RT COMPLETE EXAM: XR ANKLE RT COMPLETE CLINICAL HISTORY: achilles tendon pain. TECHNIQUE: 2D digital imaging was performed. Three views. COMPARISON: US US LOWER EXTREMITY LIMITED RIGHT from 11/03/2021 FINDINGS: BONES: No acute fracture is present. No bony destructive lesion is seen. Ossicle beneath the lateral malleolus. JOINTS: The ankle mortise is normally aligned. The degenerative changes with spurring at the dorsal talonavicular joint. SOFT TISSUE: Soft tissue swelling around the malleoli. Swelling posteriorly, in the region of the Ac hilles tendon. No calcifications visible. IMPRESSION: Swelling in the region of the Achilles tendon. Mild generalized swelling around the ankle. DATA REPOSITORY: RADIATION DOSE DELIVERED:
== END 2021-12-10 08:48 | disposition home or self-care (01) ==
LOC: DIORS 08:48
PROVIDERS: PCP Nurse Practitioner Family; Referring Provider Nurse Practitioner Family; Visit Provider Student in an Organized Health Care Education/Training Program
DX: M76.61 Achilles tendinitis, right leg; M79.89 Other specified soft tissue disorders
CPT/HCPCS: 73610

== ENCOUNTER → 2022-01-14 01:51 | Outpatient (CLI) | payer BC, SELFPAY ==
--- NOTE | 2022-01-14 07:35 | DI.US_ITS ---
APPROVED REPORT EXAM: Comprehensive 2D, Doppler, and color-flow Echocardiogram Patient Location: Out-Patient [facility] Physician: Nellie Cole RDCS (AE) Indications: Fatigue, h/o covid, Sruthi-Danlos Other Information Study Quality: Adequate Conclusion Normal left ventricular wall thickness and chamber size. Estimated ejection fraction is 60%. Wall m otion is normal Normal right ventricular size and systolic function Both atria are normal in size There are no structural or hemodynamically significant valvular abnormalities Borderline dilated ascending aorta measuring 3.40 cm Wall motion Left Ventricle The left ventricle is normal size. The left ventricular systolic function is normal. The left ventric ular ejection fraction is within the normal range. There is normal left ventricular wall thickness. T here is normal LV segmental wall motion. There is no ventricular septal defect visualized. LVEF is 59 %. Right Ventricle The right ventricle is normal size. The right ventricular systolic function is normal. Atria The left atrium size is normal. The right atrium size is normal. The interatrial septum is intact wit h no evidence for an atrial septal defect. Aortic Valve The aortic valve is normal in structure. Aortic valve is trileaflet. There is no aortic valvular sten osis. No aortic regurgitation is present. Mitral Valve The mitral valve is normal in structure. No evidence of mitral valve stenosis. Trace mitral regurgita tion. Tricuspid Valve The tricuspid valve is normal in structure. There is no tricuspid valve stenosis. Trace tricuspid reg urgitation. Unable to assess PA pressure. Pulmonic Valve The pulmonary valve is normal in structure. There is no pulmonic valvular stenosis. There is no pulmo daniel valvular regurgitation. Great Vessels The aortic root is normal in size. The ascending aorta is mildly dilated. Aortic arch is normal in ca liber. IVC is normal in size and collapses >50% with inspiration. Pericardium There is no pericardial effusion. 2D Dimensions IVSD d PLAX 0.89 cm F: 0.6-1.0 LV Vol A2C d MOD 129.2 mL LVPW d PLAX 0.90 cm F: 0.6 - 1.0 LV Vol A4C d MOD 118.9 mL LVID d PLAX 4.53 cm F: 3.8 - 5.2 LA vol/ BSA A2C s A-L 19.9 mL/m2 LVDs 3.05 cm F: 2.2 - 3.5 LA vol/ BSA A4C s A-L 14.8 mL/m2 Ao Root d 3.31 cm F: 2.7 - 3.3 LA Vol/ BSA Biplane s A-L 18.6 mL/m2 RA Area A4C 13.18 cm2 LA Area A4C s MOD 13.61 cm2 RA Vol/ BSA A4C s A-L 13.9 mL/m2 LA Area A2C s MOD 14.54 cm2 Ao Asc Diam d 3.40 cm F: 2.3 - 3.1 LV EF A4C MOD 59.6 % LV EF Teichholz 60.5 % LV EF A2C MOD 59.1 % LVEF (Erickson's) 59.11 % F: 54 - 74 LV EF Biplane MOD 59.1 % LV Volume 94.40 mL F: 46 - 106 SV 74.89 mL LV Volume Index 46.27 mL/m2 F: 29 - 61 SV Index 36.71 mL/m2 LV Vol Biplane MOD 126.7 mL FS 32.15 % M-Mode TAPSE 2.25 cm (M/F) >1.7 LV Diastology MV E' medial 0.165 (>0.07 m/s) E/A Ratio 1.2 LV E/e MED 5.20 (<14) MV E Vmax 0.86 (0.4-1.3 m/s) MV E' lateral 0.178 (>0.1 m/s) MV A Vmax 0.70 (0.4-1.3 m/s) LV E/e LAT 4.80 (<14) MV E/A Ratio 1.16 MV E/E' medial 5.23 MV E/E' lateral 4.84 Aortic Valve LVOT Area 3.78 cm2 AoV Area Vmax 3.16 cm2 LVOT Vmax 1.05 m/s AoV Area/ BSA (Vmax) 1.55 cm2/m2 LVOT Mean Roque. 0.74 m/s ESTELITA Mean Roque. 2.87 cm2 LVOT Peak Grad 4.4 mmHg ESTELITA Mean Roque. Index 1.41 cm2/m2 LVOT Mean Grad 2.4 mmHg LVOT VTI 0.198 m LVOT Diam s 2.15 cm AoV Vmax 1.26 m/s Velocity Ratio 0.83 AoV Mean Roque. 0.97 m/s AoV Peak Grad 6.3 mmHg LVOT SV 74.99 mL AoV Mean Grad 4.1 mmHg AoV VTI 0.257 m AoV Area VTI 2.92 cm2 AoV Area/ BSA (VTI) 1.43 cm/m2 Mitral Valve MV DT 270 (160-240 msec) MV PHT 78 msec MV Area PHT 2.81 cm2 MV VTI 0.202 m MV Area VTI 3.71 (4.0-6.0 cm2) Pulmonary Valve PV Vmax 0.94 (0.5-1.5 m/s) RVOT Peak Gr. 3.15 mmHg PV Peak Grad 3.5 mmHg RVOT Mean Gr. 2.05 mmHg PV Mean Grad 2.6 mmHg RVOT VTI 0.191 m PV VTI 0.189 m RVOT Vmax 0.89 m/s
== END ==
PROVIDERS: PCP Nurse Practitioner Family; Visit Provider Nurse Practitioner Family
DX: R53.83 Other fatigue (principal); Z86.16 Personal history of COVID-19; Q79.69 Other Ehlers-Danlos syndromes
CPT/HCPCS: 93306

== ENCOUNTER 2023-05-19 18:56 | Outpatient (REF) | payer BC, SELFPAY ==
[2023-05-19 21:04] LABS: HCT 39.7 % (36.0-46.0); HGB 13.4 g/dL (11.2-15.7); MCH 30.7 pg (27.0-33.0); MCHC 33.8 % (32.0-36.0); MCV 91 fL (80-95); MPV 9.8 fL (8.0-11.0); Platelet Count 346 10^3/uL (130-400); RBC 4.36 10^6/uL (3.93-5.22); RDW 12.3 % (11.7-14.6); RDW-SD 41.1 fL; WBC 6.45 10^3/uL (4.4-10.8)
[2023-05-19 21:37] LABS: Ferritin 77 ng/mL (8-252)
[2023-05-19 22:20] LABS: Iron 60 ug/dL (50-170); Total Iron Binding Capacity 403 ug/dL (250-450); Transferrin Sat 15 % (15-50)
== END 2023-05-19 18:57 | disposition home or self-care (01) ==
LOC: NCHCN 18:56
PROVIDERS: PCP Nurse Practitioner Family; Visit Provider Nurse Practitioner Family
DX: E61.1 Iron deficiency (principal); Z00.00 Encounter for general adult medical examination without abnormal findings
CPT/HCPCS: 85027; 82728; 83540; 83550

== ENCOUNTER 2024-01-12 08:56 | Emergency (ER) | payer BC, SELFPAY ==
[2024-01-12 09:12] VITALS: BP 156/101; PULSE 109; RESP 20; TEMP 37.2; O2SAT 98
--- NOTE | 2024-01-12 09:17 | W.ED.GENAD ---
Discharge Plan Disposition Patient Disposition: Home Condition: Stable Discharge Details Clinical Impression: Contusion of right elbow Primary Care Provider: Sharda Callahan ED Provider: Andriy Nash Home Meds and New Rx's Prescriptions: Continued dextroamphetamine sulfate [Dexedrine Spansule] 10 mg capsule, extended release 30 mg PO DAILY norgestimate-ethinyl estradiol [[id number]-[id number]] 0.18/0.215/0.25 mg-25 mcg tablet 1 tab PO DAILY naratriptan 2.5 mg tablet 2.5 mg PO BID PRN vilazodone 40 mg tablet 40 mg PO DAILY Patient Comments: TAKE ONE TABLET BY MOUTH EVERY DAY acetaminophen [Tylenol] 325 mg Tablet 1,000 mg PO PRN PRN Discharge Instructions Instructions: Contusion in Adults (ED) Additional Instructions: You were seen in the emergency department for your fall hitting her right elbow in the bathroom this morning. There is no fracture seen on x-ray, your bones are in normal alignment and there is no dislocation. You likely have just a contusion. Please rest, ice, compress and elevate the elbow is much as possible over the next couple days, ice to complete numbness then let rewarm. Please use therapeutic dosing of Tylenol (acetamenophen) & Advil (ibuprofen) in an alternating fashion as follows: Take 1000mg of Tylenol every 6 hours without missing doses- that is 4 times per day. [place] in between the Tylenol dosings, take 400-600mg of Advil also on a 6 hour schedule, that is also 4 times per day. The daily maximum dosing of Tylenol is 4000mg, and the daily maximum dosing of Advil is 2400mg. This is safe to do for weeks. Please note that some common cold medications & prescription pain medications may contain acetamenophen and you need to read OTC drug labels and factor that in to maximum daily dosings. Please follow-up with orthopedics for persistent pain past 2 weeks, return to ER for severe increase in pain and swelling distal to the elbow with inability to move the arm Referrals: Sharda Callahan [Primary Care Provider] - Discharge Data Discharge Date/Time-TO BE ENTERED AT DEPARTURE: 01/12/24 10:36 HPI General Date/Time Provider Initiated Documentation: 01/12/24 09:17. HPI Narrative: 33 year-old female presents to ED today by POV/ambulating with her spouse with a chief complaint of slip & fall getting out of the shower landing on her R elbow, R-hand dominant, with onset this morning. Quality described as tender to touch, mild swelling and bruising to R elbow lateral epicondyle area, no radiation to numbness/tingling distally, humeral pain, shoulder pain, forearm pain. Severity is described as moderate to severe. Palliating factors include makeshift sling with some relief. Provoking factors include nothing specific. Patient not anticoagulated. Related Data Home Medications Medication Instructions Recorded Confirmed acetaminophen 325 mg tablet 1,000 mg PO PRN PRN 05/17/19 01/12/24 (Tylenol) dextroamphetamine sulfate 10 mg 30 mg PO DAILY 11/26/21 01/12/24 capsule,extended release (Dexedrine Spansule) naratriptan 2.5 mg tablet 2.5 mg PO BID PRN 11/26/21 01/12/24 norgestimate 0.18 mg/0.215 mg/0.25 1 tab PO DAILY 11/26/21 01/12/24 mg-ethinyl estradiol 25 mcg tablet ([id number]) vilazodone 40 mg tablet 40 mg PO DAILY 01/12/24 01/12/24 Allergies Allergy/AdvReac Type Severity Reaction Status Date / Time No Known Allergies Allergy Unverified 01/12/24 09:15 General Stated Complaint: Orthopedic DAVID: 4 Review of Systems All systems reviewed & are unremarkable except as noted in HPI and below Exam Narrative Exam Narrative: GENERAL APPEARANCE: Well-nourished, non-toxic, awake and alert, atraumatic, no acute distress. SKIN: Warm, pink, dry, intact, without rashes/lesions/ulcerations. HEAD: Normocephalic, atraumatic, normal hair distribution for gender/age. EYES: Pupils PERRLA, EOMs intact without nystagmus, normal conjunctiva, no exudates on lids/lashes. ENT: Nares patent, no circumoral cyanosis, no facial swelling NECK: Supple, trachea midline, painless cervical ROM. LUNGS/CHEST: Non-labored respirations, normal A/P diameter, symmetrical expansion, no chest wall deformity HEART (CV/PV): Regular rate, R radial pulse 2+, no peripheral edema, no JVD. ABDOMEN: Soft, non-distended, no guarding. MSK: Normal ROM, no swelling/deformity to bilateral UEs or LEs, moving all extremities without weakness, no cyanosis, spine midline without tenderness, normal curvature. 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 Motor: No focal weakness - strength 5/5 in bilateral UEs and LEs, proximal and distal, symmetric. Sensory: sensation intact to light touch globally. Gait normal: patient ambulated without ataxia into ED room. PSYCH: euthymic, cooperative, pleasant, appropriate speech Course Vital Signs Vital signs: Vital Signs Temperature 37.2 C 01/12/24 09:12 Pulse 109 H 01/12/24 09:12 Respiratory Rate 20 01/12/24 09:12 Blood Pressure 156/101 H 01/12/24 09:12 Pulse Oximetry 98 01/12/24 09:12 Temperature 37.2 C 01/12/24 09:12 Temperature Source Skin 01/12/24 09:12 Pulse 109 H 01/12/24 09:12 Respiratory Rate 20 01/12/24 09:12 Blood Pressure 156/101 H 01/12/24 09:12 Blood Pressure Position Sitting 01/12/24 09:12 Pulse Oximetry 98 01/12/24 09:12 Oxygen Delivery Method Room Air 01/12/24 09:12 Oxygen Flow Rate 0 01/12/24 09:12 Pain Level 3 01/12/24 09:12 Medical Decision Making This dictation utilizes [id number] dictation software and may contain unedited grammatical errors. 33 year-old female presents to ED today by POV/ambulating with her spouse with a chief complaint of slip & fall getting out of the shower landing on her R elbow, R-hand dominant, with onset this morning. Quality described as tender to touch, mild swelling and bruising to R elbow lateral epicondyle area, no radiation to numbness/tingling distally, humeral pain, shoulder pain, forearm pain. Severity is described as moderate to severe. Palliating factors include makeshift sling with some relief. Provoking factors include nothing specific. Patients' medical history: Noncontributory. Family and social history: Noncontributory. 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 Differential / pathologies of concern include fracture, sprain, contusion, ligamentous injury of right elbow. Diagnostic studies of: -XR R Elbow - no acute fracture seen. Interventions of: -recommend RICE therapy, therapeutic APAP/NSAID. ED Course/Assessment/Plan: 33-year-old female presents with a right elbow injury fell with direct impact to right elbow with mild swelling and bruising without crepitus, able to supinate and pronate, x-rays negative for fracture, do not feel a sling is necessary will likely improve in the short-term with RICE therapy and therapeutic dosing of Tylenol and ibuprofen, recommend she follow-up with orthopedics for any pain persisting past 2 weeks or range of motion deficits. Strict return criteria for any signs of neurovascular compromise distal to the right elbow. Findings not consistent with fracture, NV compromise. Disposition of Contusion of Right Elbow. Patient verbalized understanding of the plan and return to ED criteria and engaged in shared decision making. Medical Records Medical records reviewed: Yes I reviewed the patient's medical records. Imaging Data Radiologic Study: Attestation: I personally reviewed and interpreted this imaging study as follows: Imaging: X-Ray Radiologist's impression: EXAM: XR ELBOW RT COMPLETE CLINICAL HISTORY: R elbow pain. TECHNIQUE: 2D digital imaging was performed of the left elbow. Three images were obtained. AP, lateral and oblique views were obtained. COMPARISON: No exams were available for comparison FINDINGS: BONES: No acute fracture is present. No bony destructive lesion is seen. JOINTS: The elbow is normally aligned. No joint effusion is seen. SOFT TISSUE: Normal. IMPRESSION: Unremarkable radiographs of the right elbow. Quality:SDOH Health Related Social Needs: No Data to Display PFSH All Active Problems (Updated 01/12/24 @ 10:08 by RODOLFO Guan) Contusion of right elbow (Acute) Achilles tendonosis of right lower extremity (Acute) SVT (supraventricular tachycardia) (Chronic) Intercostal muscle strain (Acute) Medical History (Updated 01/12/24 @ 10:08 by RODOLFO Guan) Chronic back pain Sruthi-Danlos and osteogenesis imperfecta syndrome Iron deficiency Anxiety Migraines ADHD Depression Social History Smoking/Tobacco Use Status: Never Smoking risk assessment performed?: Yes Alcohol Intake: never Substance use type: does not use Current gender identity: female Do you feel safe at home: Yes Do you feel safe in your relationship?: Yes
--- NOTE | 2024-01-12 09:40 | DI.RAD_ITS ---
Exam(s) XR ELBOW RT COMPLETE EXAM: XR ELBOW RT COMPLETE CLINICAL HISTORY: R elbow pain. TECHNIQUE: 2D digital imaging was performed of the left elbow. Three images were obtained. AP, lat eral and oblique views were obtained. COMPARISON: No exams were available for comparison FINDINGS: BONES: No acute fracture is present. No bony destructive lesion is seen. JOINTS: The elbow is normally aligned. No joint effusion is seen. SOFT TISSUE: Normal. IMPRESSION: Unremarkable radiographs of the right elbow. DATA REPOSITORY: RADIATION DOSE DELIVERED:
== END 2024-01-12 10:36 | disposition home or self-care (01) ==
PROVIDERS: Emergency Provider Physician Assistant; PCP Nurse Practitioner Family
DX: S50.01XA Contusion of right elbow, initial encounter (principal); Q79.60 Ehlers-Danlos syndrome, unspecified; W18.2XXA Fall in (into) shower or empty bathtub, initial encounter; Y93.89 Activity, other specified; Y92.012 Bathroom of single-family (private) house as the place of occurrence of the external cause
CPT/HCPCS: 99283; 73080

== ENCOUNTER 2024-03-28 15:48 | Outpatient (CLI) | payer BC, SELFPAY ==
[2024-03-28 12:45] LABS: Abs Immature Grans 0.13 10^3/uL (0.0-0.06); Absolute Basophil Count 0.03 10^3/uL (0.0-0.2); Absolute Lymphocyte Count 1.67 10^3/uL (1.2-3.4); Absolute Monocyte Count 0.38 10^3/uL (0.1-0.8); Basophils % 0.2 %; Eosinophils % 0.1 %; HCT 41.3 % (36.0-46.0); HGB 13.7 g/dL (11.2-15.7); Immature Grans % 0.8 %; Lymphocytes % 9.8 %; MCH 31.6 pg (27.0-33.0); MCHC 33.2 % (32.0-36.0); MCV 95 fL (80-95); MPV 8.5 fL (8.0-11.0); Monocytes % 2.2 %; Neutrophils % 86.9 %; Platelet Count 295 10^3/uL (130-400); RBC 4.34 10^6/uL (3.93-5.22); RDW-SD 45.4 fL; WBC 17.07 10^3/uL (4.4-10.8)
[2024-03-28 12:48] LABS: Absolute Eosinophil Count 0.02 10^3/uL (0.0-0.7); Absolute Neutrophil Count 14.83 10^3/uL (1.2-6.7)
[2024-03-28 13:55] LABS: ALT 22 U/L (14-59); AST 11 U/L (15-37); Albumin 3.6 g/dL (3.4-5.0); Alkaline Phosphatase 80 U/L (46-116); Anion Gap 9.2 mmol/L (3-11); BUN 10 mg/dL (7-18); Bilirubin, Total 0.49 mg/dL (0.2-1.0); CO2 27.8 mmol/L (21.0-32.0); CREATININE 0.8 mg/dL (0.55-1.02); Calcium 9.3 mg/dL (8.5-10.1); Chloride 102 mmol/L (98-107); Estimated GFR 98.48 (mL/min/1.73m2); Glucose 116 mg/dL (74-106); Sodium 139 mmol/L (136-145); Total Protein 6.8 g/dL (6.4-8.2)
--- OUTSIDE RECORDS SUMMARY | 2024-03-28 15:57 | XMS_ITS | Data Portability ---
Author Organization [place] - [facility] Address [address] [place] [address] Assessment Encounter Date Assessment Date Assessment LastModified by Organization Details LastModified Time 03/21/2024 03/21/2024 FU as scheduled with PCP. [email or web address] Not available 03/21/2024 14:22:48 Plan of Treatment Reminders Order Date Submit Date Provider Last Modified By Organization Details Last Modified Time Details Appointments Office Visit 30 2023 10:30A M Not available Not available Not available Annual Wellness Exam 40 2023 02:20P M Not available Not available Not available Lab None recorded. Referral None recorded. Procedures None recorded. Surgeries None recorded. Imaging None recorded. Medication Orders vilazodon e 40 mg tablet 2022 023 [facility], [address] [place], [address], 07/09/2023 14:13:54 nystatin 100,000 unit/gram topical cream 2023 024 [facility], [address] [place], [address], 03/21/2024 14:25:29 Diflucan 150 mg tablet 2023 024 [facility], [address] [place], [address], 03/21/2024 14:00:27 dextroamp hetamine sulfate 30 mg tablet 2023 024 [facility], [address] [place], [address], 03/21/2024 15:41:25 Patient TargetsNo targets recorded. Patient InstructionsNo instructions recorded. Reason for Referral None Reported. Results Created Date Observation Date Name Description Value Unit Range Abnormal Flag LastModifiedBy Organization Detail LastModifiedTime 03/28/20 24 03/28/2024 COMPR EHENS SHIRA METAB OLIC PANEL calcium 9.3 mg/dL 8.5-10 .1 normal Not Available [address] [place], [address] 03/28/2024 13:59:58 03/28/2003/28/2024 COMPR EHENS SHIRA METAB OLIC PANEL glucose 116 mg/dL 74-106 high Not Available [address] [place], [address] 03/28/2024 13:59:58 03/28/2003/28/2024 COMPR EHENS SHIRA METAB OLIC PANEL BUN 10 mg/dL 7-18 normal Not Available [address] [place], [address] 03/28/2024 13:59:58 03/28/2003/28/2024 COMPR EHENS SHIRA METAB OLIC PANEL creatinine 0.8 mg/dL 0.55-1 .02 normal Not Available [address] [place], [address] 03/28/2024 13:59:58 03/28/2003/28/2024 COMPR EHENS SHIRA METAB OLIC PANEL estimated GFR 98.48 mL/min /1.73m 2 Not Available [address] [place], [address] 03/28/2024 13:59:58 03/28/2003/28/2024 COMPR EHENS SHIRA METAB OLIC PANEL total protein 6.8 g/dL 6.4-8. 2 normal Not Available [address] [place], [address] 03/28/2024 13:59:58 03/28/20 24 03/28/2024 COMPR EHENS HSIRA METAB OLIC PANEL albumin 3.6 g/dL 3.4-5. 0 normal Not Available [address] [place], [address] 03/28/2024 13:59:58 03/28/20 24 03/28/2024 COMPR EHENS SHIRA METAB OLIC PANEL bilirubin, total 0.49 mg/dL 0.2-1. 0 normal Not Available [address] [place], [address] 03/28/2024 13:59:58 03/28/2003/28/2024 COMPR EHENS SHIRA METAB OLIC PANEL alk phos 80 U/L 46-116 normal Not Available [address] [place], [address] 03/28/2024 13:59:58 03/28/20 24 03/28/2024 COMPR EHENS SHIRA METAB OLIC PANEL sodium 139 mmol/ L 136-14 5 normal Not Available [address] [place], [address] 03/28/2024 13:59:58 03/28/20 24 03/28/2024 COMPR EHENS SHIRA METAB OLIC PANEL potassium 4.0 mmol/ L 3.5-5. 1 normal Not Available [address] [place], [address] 03/28/2024 13:59:58 03/28/20 24 03/28/2024 COMPR EHENS SHIRA METAB OLIC PANEL chloride 102 mmol/ L 98-107 normal Not Available [address] [place], [address] 03/28/2024 13:59:58 03/28/20 24 03/28/2024 COMPR EHENS SHIRA METAB OLIC PANEL CO2 27.8 mmol/ L 21.0-3 2.0 normal Not Available [address] [place], [address] 03/28/2024 13:59:58 03/28/20 24 03/28/2024 COMPR EHENS SHIRA METAB OLIC PANEL anion gap 9.2 mmol/ L 3-11 normal Not Available [address] [place], [address] 03/28/2024 13:59:58 03/28/20 24 03/28/2024 COMPR EHENS SHIRA METAB OLIC PANEL AST 11 U/L 15-37 low Not Available [address] [place], [address] 03/28/2024 13:59:58 03/28/20 24 03/28/2024 COMPR EHENS SHIRA METAB OLIC PANEL ALT 22 U/L 14-59 normal Not Available [address] [place], [address] 03/28/2024 13:59:58 01/12/20 24 01/12/2024 x-ray imagi claus repor t Patimilagro t Name: Neetu Henderson Unit #: [id number] Loc: ER Marie devlin Provid er: Morteza Lorenzo Accoun t #: [id number] Status : REG ER Primar y Care [facility] er: Sharda Callahan Date of Exam: Sex: F Admiss ion Date: : 1989 Age: 33 Exam(s ) XR ELBOW RT COMPLE TE EXAM: XR ELBOW RT COMPLE TE CLINIC AL HISTOR Y: R elbow pain. TECHNI QUE: 2D digita l imagin g was perfor med of the left elbow. Three images were obtain ed. AP, latera l and obliqu e views were obtain ed. COMPAR HUSSAIN: No exams were availa ble for compar hussain FINDIN GS: BONES: No acute fractu re is presen t. No bony destru ctive lesion is seen. JOINTS : The elbow is normal ly aligne d. No joint effusi on is seen. SOFT TISSUE : Normal . IMPRES MARAH: Unrema rkable radiog raphs of the right elbow. DATA REPOSI TORY: RADIAT ION DOSE DELIVE RED: Ordere d By: Morteza Lorenzo CC: ------ ------ ------ ------ ------ ------ ------ ------ ------ ------ ------ ------ - Dictat ed By: Sridhar Millard M.D. [id number] Transc ribed By: Sridhar Millard 952 This is privil eged, confid ential inform ation intend ed only for the provid er named. Any use or distri bution by any person other than this provid er is strict ly prohib ited. If you receiv e this report in error, please notify us immedi camelialy at [phone] and return the origin al report to us at the addres s above. Thank- you. [email or web address] [place] [id number], [place], [address] 01/12/2024 10:18:41 Result Notes None recorded. Problems Name Status Onset Date Resolution Date Notes Provider Name and Address Organization Details Recorded Time Migraine Active 201710/01/2021 - Comments only - Sharda Callahan QUALITY CONTROL MANAGER - Not a significant issue at this time. Problem Code: G43.909; Problem Code Type: ICD-10; Not Available [facility] 3 05:11:50 Attention deficit hyperactivity disorder Active 201711/18/2022 - Comments only - Sharda Callahan QUALITY CONTROL MANAGER - No concerns, UDS as expected today. Controled substance agreement completed. Rx for 3 months sent to pharmacy. 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 Asking for PT referral. Order placed. Oren Reeder. Asked that she call if she does not experience adequate management of her pain with PT Not Available [facility] 3 05:11:51 Counseling Completed 201709/15/2017 09/01/2017 - Comments only - Caitlin Stressenger QUALITY CONTROL MANAGER - - Here from [facility] for establishment of care. She is due for a pap smear, as she reports it has been at least three years. Recommended she make an appt at her next convenience for a full annual with pap Problem Code: Z71.89; Problem Code Type: ICD-10; Not Available [facility] 3 05:11:51 Nutritional deficiency disorder Active 201709/08/2017 - Comments only - Caitlin Hu QUALITY CONTROL MANAGER - - Vegan. Will get CBC-D, ferritin, iron/TIBC, and B12 to ensure she is not deficient in anything. Encouraged her to take daily multivitamin instead of iron supplement alone, as she as at risk for more than just iron deficiency. Also reviewed healthy protein sources. She will try this Problem Code: E63.9; Problem Code Type: ICD-10; Not Available [facility] 3 05:11:51 Adult health examination Active 201710/01/2021 - Comments only - Sharda FITZPATRICK - Annual exam with papsmear completed at today's visit. Problem Code: Z00.00; Problem Code Type: ICD-10; Not Available [facility] 3 05:11:51 Menopause present Active 201803/29/2020 - Comments only - Sharda FITZPATRICK - Will decrease wellbutrin to 150mg daily and start celexa at 10mg daily in hopes of decreases vasomotor symptoms. Neetu has had sexual side effects from SSRI's before she is aware that there is a small risk of this with celxa. Should celexa have a positive effect, will consider stopping wellbutrin and increasing celexa if necessary. Problem Code: N95.1; Problem Code Type: ICD-10; Not Available [facility] 3 05:11:51 Generalized hyperhidrosis Active 201802/01/2019 - Comments only - Sharda SAHUP - Neetu elects to obtain serum fractionated plasma metanephrines and evaluation of pheochromocyt funmilayo. Normal TSH, BMP and CBC completed 08/25/18. Problem Code: R61; Problem Code Type: ICD-10; Not Available [facility] 3 05:11:51 Fatigue Active 201811/18/2022 - Comments only - Sharda Callahan QUALITY CONTROL MANAGER - Signifcant chronic fatigue likely contributing to poor mental health. Sleep apnea certainly plausible as a contributing cause. Will place referal to sleep clinic. Problem Code: R53.83; Problem Code Type: ICD-10; Not Available [facility] 3 05:11:51 Blood chemistry outside reference range Completed 201805/19/2023 Problem Code: R79.89; Problem Code Type: ICD-10; Not Available [facility] 4 05:35:56 Iron deficiency Active 201810/01/2021 - Comments only - Sharda Callahan QUALITY CONTROL MANAGER - IRON/TIBC at todays visit due to excessive exercise intolerance. Does not regularly take iron. Problem Code: E61.1; Problem Code Type: ICD-10; Not Available [facility] 3 05:11:51 Anxiety disorder Active 201808/16/2019 - Comments only - Sharda Callahan QUALITY CONTROL MANAGER - No changes made to bupropion XL 300mg daily. will add buspione 7.5mg twice daily. I reviewed with Neetu that this may be a helpful tool for her but that stress management would still be necessary. Problem Code: F41.9; Problem Code Type: ICD-10; Not Available [facility] 3 05:11:51 Irregular periods Active 202010/01/2021 - Comments only - Sharda Callahan QUALITY CONTROL MANAGER - Significantly improved since starting OCP. Problem Code: N92.6; Problem Code Type: ICD-10; Not Available [facility] 3 05:11:52 Chronic pain Active 2021 Problem Code: G89.29; Problem Code Type: ICD-10; Not Available [facility] 3 05:11:52 History of SARS-CoV-2 Completed 202105/19/2023 Problem Code: Z86.16; Problem Code Type: ICD-10; Not Available [facility] 4 05:35:58 Ectasia of thoracic aorta Active 2021 Problem Code: I77.810; Problem Code Type: ICD-10; Not Available [facility] 3 05:11:52 condition affecting obstetrical care of mother Active 2022 Problem Code: O35.8xx0; Problem Code Type: ICD-10; Not Available [facility] 3 05:11:52 Obstructive sleep apnea syndrome Active 2022 Problem Code: G47.33; Problem Code Type: ICD-10; Not Available [facility] 3 05:11:52 Abnormal weight gain Completed 201810/11/2020 Problem Code: R63.5; Problem Code Type: ICD-10; Not Available [facility] 3 05:11:52 Localized eruption of skin Completed 201810/13/2019 Problem Code: R21; Problem Code Type: ICD-10; [address] [place], [address] , [facility] 4 10:38:47 Disorder of skin appendage Completed 201710/13/2019 Problem Code: L73.9; Problem Code Type: ICD-10; Not Available [facility] 3 05:11:53 Arthralgia of the ankle and/or foot Completed 201710/01/2021 Problem Code: M25.571; Problem Code Type: ICD-10; Not Available [facility] 3 05:11:53 Palpitations Completed 201911/18/2022 Problem Code: R00.2; Problem Code Type: ICD-10; Not Available [facility] 3 05:11:53 Exposure to communicable disease Completed 201910/11/2020 Problem Code: Z20.9; Problem Code Type: ICD-10; Not Available [facility] 3 05:11:53 Right Achilles tendinitis Completed 202111/18/2022 Problem Code: M76.61; Problem Code Type: ICD-10; Not Available [facility] 3 05:11:53 Abnormal weight loss Completed 201911/18/2022 Problem Code: R63.4; Problem Code Type: ICD-10; Not Available [facility] 3 05:11:54 History of psychiatric disorder Completed 201705/05/2023 Problem Code: Z86.59; Problem Code Type: ICD-10; Not Available [facility] 3 05:11:54 Nonulcer dyspepsia Completed 201810/01/2021 Problem Code: K30; Problem Code Type: ICD-10; Not Available [facility] 3 05:11:54 Chest pain Completed 201911/18/2022 Problem Code: R07.89; Problem Code Type: ICD-10; Not Available [facility] 3 05:11:54 Major depressive disorder Active [address], [address] 3 14:11:52 Candidiasis of skin Active [address], [address] 4 11:46:32 Dermal mycosis Active [address], [address] 4 10:38:03 Localized eruption of skin Active 2023 Problem Code: R21; Problem Code Type: ICD-10; [address] Dr, [place] [address] , [facility] 4 10:38:47 Pruritic rash Active [address], [address] 4 14:18:12 Leukocytosis Active [address], [facility] [id number] [place] [address] 4 13:08:58 Problem Notes None recorded. Procedures Surgical History None recorded. Imaging Results Imaging Date Name Status LastModified by Organiz atkym Details LastModified Time 01/12/2024 x-ray imaging report completed [facility] [address], [place], [address] 01/12/2024 10:18:41 Procedure Notes None recorded. Medical Equipment None Reported. Allergies No known drug allergies Medications Name Sig Start Date Stop Date Status Note LastModified by Organization Details LastModified Time terbinafi ne HCl 1 % topical cream Apply to affected skin twice daily. 03/21 completed Not Available Not Available Not Available bupropion HCl SR 150 mg tablet,12 hr sustained -release TAKE 1 TABLET BY MOUTH EVERY DAY 09/02 completed Not Available Not Available Not Available prednison e 10 mg tablet tapering course active Not Available Not Available No t Available Iron (ferrous sulfate) 325 mg (65 mg iron) tablet 10/10 completed Pt-initi ated. She is vegan. She does not recall dose Not Available Not Available Not Available fluconazo le 150 mg tablet Take 1 tablet every day by oral route in the morning for 3 days, for yeast infectio n. 03/21 completed Not Available Not Available Not Available citalopra m 10 mg tablet TAKE 1 TABLET BY MOUTH DAILY 07/16 completed Not Available Not Available Not Available prednison e 20 mg tablet TAKE 3 TABLETS BY MOUTH DAILY FOR 3 DAYS THEN TAKE 2 TABLETS DAILY FOR 3 DAYS THEN TAKE 1 TABLET DAILY FOR 3 DAYS 02/15 completed Not Available Not Available Not Available cephalexi n 250 mg tablet Take 1 tab by mouth four times daily 01/27 completed Not Available Not Available Not Available sertralin e 100 mg tablet Take 1 tab by mouth daily 2017 active Not Available Not Available Not Avai lable terconazo le 0.8 % vaginal cream USE CREAM OVER AFFECTED AREA ONCE DAILY UNTIL RESOLUTI ON 03/21 completed Not Available Not Available Not Available dextroamp hetamine sulfate 10 mg tablet Take 3 tablet by mouth once a day 11/18 completed Not Available Not Available Not Available dextroamp hetamine sulfate ER 10 mg capsule,e xtended release Take 1 tablet by mouth every morning 07/01 completed Not Available Not Available Not Available citalopra m 20 mg tablet Take 1 tablet by mouth once a day 11/26 completed Not Available Not Available Not Available nystatin 100,000 unit/gram topical cream APPLY TO AFFECTED AREA(S) TWO TIMES A DAY 03/21 completed Not Available Not Available Not Available clotrimaz ole-betam ethasone 1 %-0.05 % topical cream APPLY TOPICALL Y TO THE AFFECTED AREA TWO TIMES A DAY FOR 21 DAYS 03/21 completed Not Available Not Available Not Available fluoxetin e 10 mg capsule Take 1 tab by mouth daily 2017 active Not Available Not Available Not Avai lable sertralin e 25 mg tablet Take 1 tab by mouth daily 2017 active Not Available Not Available Not Avai lable buspirone 7.5 mg tablet Take 1 tab by mouth twice daily as needed 10/10 completed Not Available Not Available Not Available omeprazol e 20 mg capsule,d elayed release 1 capsule by mouth once a day 07/01 completed Not Available Not Available Not Available zolpidem 5 mg tablet TAKE 1 TO 2 TABLETS BY MOUTH THE NIGHT OF SLEEP STUDY IF NEEDED 02/15 completed Not Available Not Available Not Available ketoconaz ole 2 % topical cream Use to skin once a day 10/01 completed Not Available Not Available Not Available fluoxetin e 20 mg capsule Take one tablet daily 12/15 completed placed in historia l until current supply of 10mg runs out. Not Available Not Available Not Available sertralin e 50 mg tablet Take 1 tablet by mouth once a day 07/22 completed Not Available Not Available Not Available naratript an 2.5 mg tablet TAKE ONE TABLET BY MOUTH ONCE NEEDED; MAY REPEAT DOSE IN 4 HOURS +MAX 2 TABLETS PER DAY+ active Not Available Not Available No t Available amoxicill in 875 mg-potass ium clavulana te 125 mg tablet TAKE 1 TABLET BY MOUTH TWO TIMES A DAY FOR 10 DAYS 02/15 completed Not Available Not Available Not Available Lexapro 10 mg tablet Take 1 tab by mouth daily 04/18 completed Not Available Not Available Not Available Lexapro 20 mg tablet Take 1 tab by mouth daily 2017 active Not Available Not Available Not Avai lable bupropion HCl XL 300 mg 24 hr tablet, extended release TAKE 1 TABLET BY MOUTH EVERY DAY 2018 active Not Available Not Available Not Avai lable duloxetin e 30 mg capsule,d elayed release Take 1 capsule by mouth once a day 08/19 completed Not Available Not Available Not Available duloxetin e 60 mg capsule,d elayed release Take 1 capsule by mouth once a day 11/18 completed Not Available Not Available Not Available NAC 600 mg capsule Take 2 capsule by mouth twice a day Take two capsules po Q AM with two addition al capsules in the afternoo n/early evening for mood 11/26 completed Not Available Not Available Not Available vilazodon e 40 mg tablet TAKE ONE TABLET BY MOUTH EVERY DAY active Not Available Not Available No t Available vilazodon e 20 mg tablet TAKE ONE TABLET BY MOUTH EVERY DAY WITH MEALS 02/15 completed Not Available Not Available Not Available vilazodon e 10 mg tablet TAKE ONE TABLET BY MOUTH EVERY DAY WITH MEALS 02/15 completed Not Available Not Available Not Available L-Methylf olate 15 mg tablet Take 1 tablet by mouth once a day 10/01 completed Not Available Not Available Not Available dextroamp hetamine sulfate 30 mg tablet TAKE ONE TABLET BY MOUTH EVERY DAY active Not Available Not Available No t Available Tri-Lo-Mi li 0.18/0.21 5/0.25 mg-25 mcg tablet TAKE ONE TABLET BY MOUTH EVERY DAY active Not Available Not Available No t Available Vitals Date Recorded Body height Body mass index (BMI) Body weight Body temperature Oxygen saturation Oxygen saturation in Arterial blood by Pulse oximetry Heart rate Respiratory rate Systolic blood pressure Diastolic blood pressure Provider Name and Address Organization Details Last Updated DateTime 4 166.37 cm 35.9 kg/m2 92557.7 3 g 97.6 [degF] 97 % 97 % 93 /min 18 /min 120 mm[Hg] 80 mm[Hg] JONA MANNING RN [facility] 4 11:25:39 Date Recorded Body height Body mass index (BMI) Body weight Body temperature Oxygen saturation Oxygen saturation in Arterial blood by Pulse oximetry Heart rate Systolic blood pressure Diastolic blood pressure Provider Name and Address Organization Details Last Updated DateTime 4 166.37 cm 37.4 kg/m2 603487. 86 g 97.9 [degF] 98 % 98 % 82 /min 126 mm[Hg] 92 mm[Hg] HOLLY SCOTT CMA [facility] 14:05:13 Social History Question Answer Notes LastModified by Organizat ion Details LastModified Time Tobacco Smoking Status Never Smoker JONA MANNING RN [facility], [facility] 02/16/2024 11:27:16 1) Date Of Last VPMS Check? 03/21/2024 Information not available 03/21/2024 2) VPMS Findings No Concerns Information not available 03/21/2024 4) Daily MME 0 Information not available 03/21/2024 What Was The Date Of Your Most Recent Tobacco Screening? 02/16/2024 [email or web address] Information not available 02/16/2024 Has Tobacco Cessation Counseling Been Provided? No [email or web address] Information not available 02/16/2024 Do You Or Have You Ever Used Any Other Forms Of Tobacco Or Nicotine? No Information not available 02/16/2024 Sex: Female Functional Status None recorded. Mental Status None recorded. Family History Relationship Description Onset Age of this Age Resolved Age Notes Maternal Grandfather Family history of malignant neoplasm Maternal Grandmother Family history of malignant neoplasm Notes:*Problem: Maternal gra ndparents had cancer, unsure of type. Does not recall any FHx HTN or DM. Depression does run in the family. No known heart disease Medical History No medical history recorded. Gynecological HistoryNo gynecological history recorded. Obstetrics History GPAL:G 0 P 0 0 0 0 Immunizations Vaccine Type Date Status Provider Name and Address Organization Details Recorded Time Tdap 12/07/2013 completed Not Available [facility] 06:11:22 COVID-19, mRNA, LNP-S, PF, 100 mcg/0.5mL dose or 50 mcg/0.25mL dose 07/01/2021 completed Not Available [facility] 06/18/2023 06:11:23 COVID-19 vaccine, vector-nr, rS-Ad26, PF, 0.5 mL 10/20/2020 completed Not Available [facility] 06/18/2023 06:11:23 COVID-19, mRNA, LNP-S, bivalent, PF, 30 mcg/0.3 mL dose 07/22/2022 completed Not Available [facility] 06/18/2023 06:11:23 COVID-19, mRNA, LNP-S, PF, giovany-sucrose, 30 mcg/0.3 mL 05/19/2023 completed Not Available [facility] 08/20/2023 05:31:15 Past Encounters Encounter ID Performer Location Encounter Start Date Encounter Closed Date Diagnosis/Indication Diagnosis SNOMED-CT Code [id number] NANETTE JAIN [address] [address] 07/09/2023 13:10:22 07/09/2023 14:22:55 Major depressive disorder 190203996 [id number] RAUL BLOOD MD [address] [address] 02/16/2024 10:55:23 02/16/2024 11:43:24 Candidiasis of skin 85183709 [id number] KAMINI PRYOR APRN [address] [address] 03/21/2024 13:54:44 03/21/2024 14:46:42 Pruritic rash 41519482 Active or passive immunization 363338499 Attention deficit hyperactivity disorder 763357004 Health Concerns Section Related Observation LastModified by Organization Detai ls LastModified Time None Recorded Concern Status LastModified by Organization Details LastModified Time None Recorded Advance Directives Directive None Recorded Payers Encounter Date Sequence Insurance Name Policy Number Policy Herrera Covered Member ID Herrera Member ID Guarantor Name 07/09/2023 1 [place] [employer] [place] Neetu Robb Henderson [id number] Neetu Henderson 02/16/2024 1 [place] Neetu Zamudio Santiago [id number] Neetu Henderson 03/21/2024 1 [facility] [facility] Neetu Henderson [id number] Neetu Henderson Notes Date Note Type Note Provider Name and Address Organization Details Recorded Time 07/09/2023 text/html HPI Notes: Would like to discuss increasing vilazodone. She has been working with Janice Hong NP but was unable to get into see her in a timely manner. She wonders if the medication is helping depression some. She would like to optimize the dose to see how much it could help because she has not had any adverse response to the medication. She admits that her job is quite stressful at this time. NANETTE JAIN [address], [place], [address], [facility]. 07/09/2023 15:08:31 02/16/2024 text/html HPI Notes: Alyssia is a 33-year-old young woman who comes in today because she did develop a yeast rash underneath her axilla. After being out in the heat she became very itchy and scratched at it and at her face and developed a bacterial infection on top of it. She was seen in express care and they treated her with an antibiotic and steroid and gave her a fungal plus steroid cream. She states that the antibiotic that would have all of the spots on her face and her neck and the steroids were called everything down. Unfortunately the cream did not get rid of all of the rash on her axilla and she knows is beginning to start back again. The antibiotic unfortunately also left her with a vaginal yeast infection. She is not diabetic. She has had no fevers or chills headaches. RAUL BLOOD MD [address], [place], [address], [facility]. 02/16/2024 11:49:22 03/21/2024 text/html HPI Notes: Is he re for complaints of a rash. Was seen in the office on 02.16.24 for this rash by Dr Blood. The rash was under her axilla, she had described as itchy, was scratching and did scratch her face. Was seen in express care and they treated her with abx and steroid / antifungal cream. This cleared the infection to her face, but not in her axilla. Dr Blood gave her topical nystatin and oral diflucan 1 tab daily for 3 days. She called the office end of February because the rash was not improving, topical terconazole was sent in. She had felt the terconazole worked well for her but she was on vacation, wearing her bathing suit in the sun and felt a rash appear. She started taking benadryl, no relief. Was scheduled for a FU. She states that the rash has been present for 3 months. Multiple different stages of this. She had used OTC stuff, had a flare and using various creams. After a day in the sun she had a rash to her chest that went into her face. Went to Urgent Care. Went on steroids, antibiotics from scratching. This got rid of the symptoms. Once the steroids completed, started having itching and felt it came back. She got a script for nsytatin, this did not work. Used script for teconazole, this worked and used for about 1 week. She went out in the sun and after 30 minutes on an overcast day she had severe burning to her chest with itching; felt like a sunburn. it was wherever the antifungal creams were. Went to Urgent Care while on vacation, prescribed oral steroids. This was 5 days ago. Is doing a taper dose of prednisone. This has helped a little. Feels not as bad. Denies fevers, chills. Rash initially started left axilla and then spread to her upper arm into her arm. Has small bumps along her arms. + itches. Tries not to scratch. For the last 5 days, nothing to her skin other than coconut oil; using this couple times of day, whenever it feels dry. KAMINI PRYOR, CH[employer] [address], [place], [address], [place] - [facility]. 03/21/2024 15:41:33 OBGyn Episode No OBEpisode recorded.
--- OUTSIDE RECORDS SUMMARY | 2024-03-28 15:57 | XMS_ITS | Continuity of Care Document ---
Author Organization [place] - [facility], [facility] Address [address] [place] [address] Assessment Encounter Date Assessment Date Assessment LastModified [...] None recorded. Imaging None recorded. Medication Orders dextroamp hetamine sulfate 30 mg tablet 2023 024 [id number], [address] [place], [address], 03/21/2024 15:41:25 Patient TargetsNo targets recorded. Patient InstructionsNo instructions recorded. Reason for Referral None Reported. Problems Name Status Onset Date Resolution Date Notes Provider Name and Address Organization Details Recorded Time Migraine Active 201710/01/2021 - Comments only - Sharda Callahan BUILDING RIGGER - Not a significant issue at this time. Problem Code: G43.909; Problem Code Type: ICD-10; Not Available [facility] 05:11:50 Attention deficit hyperactivity disorder Active 201711/18/2022 - Comments only - Sharda Callahan BUILDING RIGGER - No concerns, UDS as expected today. Controled substance agreement completed. Rx for 3 months sent to pharmacy. 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 Asking for PT referral. Order Oren Reeder. Asked that she call if she does not experience adequate management of her pain with PT Not Available [facility] 3 05:11:51 Counseling Completed 201709/15/2017 09/01/2017 - Comments only - Caitlin Stressenger BUILDING RIGGER - - Here from [facility] for establishment of care. She is due for a pap smear, as she reports it has been at least three years. Recommended she make an appt at her next convenience for a full annual with pap Problem Code: Z71.89; Problem Code Type: ICD-10; Not Available [facility] 3 05:11:51 Nutritional deficiency disorder Active 201709/08/2017 - Comments only - Caitlin Mendiolaenger BUILDING RIGGER - - Vegan. Will get CBC-D, ferritin, iron/TIBC, and B12 to ensure she is not deficient in anything. Encouraged her to take daily multivitamin instead of iron supplement alone, as she as at risk for more than just iron deficiency. Also reviewed healthy protein sources. She will try this Problem Code: E63.9; Problem Code Type: ICD-10; Not Available [facility] 3 05:11:51 Adult health examination Active 201710/01/2021 - Comments only - Sharda Callahan BUILDING RIGGER - Annual exam with papsmear completed at today's visit. Problem Code: Z00.00; Problem Code Type: ICD-10; Not Available [facility] 3 05:11:51 Menopause present Active 201803/29/2020 - Comments only - Sharda Callahan BUILDING RIGGER - Will decrease wellbutrin to 150mg daily [...] N95.1; Problem Code Type: ICD-10; Not Available [facility] 3 05:11:51 Generalized hyperhidrosis Active 201802/01/2019 - Comments only - Sharda FITZPATRICK - Neetu elects to obtain serum fractionated plasma metanephrines and evaluation of pheochromocyt funmilayo. Normal TSH, BMP and CBC completed 08/25/18. Problem Code: R61; Problem Code Type: ICD-10; Not Available [facility] 3 05:11:51 Fatigue Active 201811/18/2022 - Comments only - Sharda FITZPATRICK - Signifcant chronic fatigue likely contributing to poor mental health. Sleep apnea certainly plausible as a contributing cause. Will place referal to sleep clinic. Problem Code: R53.83; Problem Code Type: ICD-10; Not Available [facility] 3 05:11:51 Blood chemistry outside reference range Completed 201805/19/2023 Problem Code: R79.89; Problem Code Type: ICD-10; Not Available [facility] 4 05:35:56 Iron deficiency Active 201810/01/2021 - Comments only - Sharda FITZPATRICK - IRON/TIBC at todays visit due to excessive exercise intolerance. Does not regularly take iron. Problem Code: E61.1; Problem Code Type: ICD-10; Not Available [facility] 3 05:11:51 Anxiety disorder Active 201808/16/2019 - Comments only - Sharda FITZPATRICK - No changes made to bupropion XL 300mg daily. will add buspione 7.5mg twice daily. I reviewed with Neetu that this may be a helpful tool for her but that stress management would still be necessary. Problem Code: F41.9; Problem Code Type: ICD-10; Not Available [facility] 3 05:11:51 Irregular periods Active 202010/01/2021 - Comments only - Sharda FITZPATRICK - Significantly improved since starting OCP. Problem Code: N92.6; Problem Code Type: ICD-10; Not Available [facility] 3 05:11:52 Chronic pain Active 2021 Problem Code: G89.29; Problem Code Type: ICD-10; Not Available [facility] 3 05:11:52 History of SARS-CoV-2 Completed 202105/19/2023 Problem Code: Z86.16; Problem Code Type: ICD-10; Not Available [facility] 4 05:35:58 Ectasia of thoracic aorta Active 2021 Problem Code: I77.810; Problem Code Type: ICD-10; Not Available [facility] 3 05:11:52 condition affecting obstetrical care of mother Active 2022 Problem Code: O35.8xx0; Problem Code Type: ICD-10; Not Available [facility] 3 05:11:52 Obstructive sleep apnea syndrome Active 2022 Problem Code: G47.33; Problem Code Type: ICD-10; Not Available [facility] 3 05:11:52 Abnormal weight gain Completed 201810/11/2020 Problem Code: R63.5; Problem Code Type: ICD-10; Not Available [facility] 3 05:11:52 Localized eruption of skin Completed 201810/13/2019 Problem Code: R21; Problem Code Type: ICD-10; NANETTE JAIN [address], [place], [address] , [facility]. 4 10:38:47 Disorder of skin appendage Completed 201710/13/2019 Problem Code: L73.9; Problem Code Type: ICD-10; Not Available [facility] 3 05:11:53 Arthralgia of the ankle and/or foot Completed 201710/01/2021 Problem Code: M25.571; Problem Code Type: ICD-10; Not Available [facility] 3 05:11:53 Palpitations Completed 201911/18/2022 Problem Code: R00.2; Problem Code Type: ICD-10; Not Available [facility] 3 05:11:53 Exposure to communicable disease Completed 201910/11/2020 Problem Code: Z20.9; Problem Code Type: ICD-10; Not Available [facility] 3 05:11:53 Right Achilles tendinitis Completed 202111/18/2022 Problem Code: M76.61; Problem Code Type: ICD-10; Not Available [facility] 3 05:11:53 Abnormal weight loss Completed 201911/18/2022 Problem Code: R63.4; Problem Code Type: ICD-10; Not Available [facility] 3 05:11:54 History of psychiatric disorder Completed 201705/05/2023 Problem Code: Z86.59; Problem Code Type: ICD-10; Not Available [facility] 3 05:11:54 Nonulcer dyspepsia Completed 201810/01/2021 Problem Code: K30; Problem Code Type: ICD-10; Not Available [facility] 3 05:11:54 Chest pain Completed 201911/18/2022 Problem Code: R07.89; Problem Code Type: ICD-10; Not Available [facility] 3 05:11:54 Major depressive disorder Active [address], [facility] [address] , [facility] 3 14:11:52 Candidiasis of skin Active [address], [place], [address] , [facility]. 4 11:46:32 Dermal mycosis Active [address], [facility] [address] , [facility] 4 10:38:03 Localized eruption of skin Active 2023 Problem Code: R21; Problem Code Type: ICD-10; [address], [place], [address] , [facility] 4 10:38:47 Pruritic rash Active 2023 KAMINI PRYOR APRN [address], [place], [address] , [facility] 4 14:18:12 Leukocytosis Active [address], [place], [address] , [facility] 4 13:08:58 Problem Notes None recorded. Medical Equipment None Reported. [...] and Address Organization Details Last Updated DateTime 166.37 cm 37.4 kg/m2 133881. 86 g 97.9 [degF] 98 % 98 % 82 /min 126 mm[Hg] 92 mm[Hg] HOLLY SCOTT CMA [facility] 14:05:13 Social History Question Answer Notes LastModified by Organizat ion Details LastModified Time Tobacco Smoking Status Never Smoker JONA MANNING RN [facility], [facility] 02/16/2024 11:27:16 1) Date Of Last VPMS Check? 03/21/2024 Information not available 03/21/2024 2) VPMS Findings No Concerns Information not available 03/21/2024 4) Daily MME 0 Information not available 03/21/2024 What Was The Date Of Your Most Recent Tobacco Screening? 02/16/2024 Information not available 02/16/2024 Has Tobacco Cessation Counseling Been Provided? No [email or web address] Information not available 02/16/2024 Do You Or Have You Ever Used Any Other Forms Of Tobacco Or Nicotine? No [email or web address] Information not available 02/16/2024 Sex: Female Functional [...] Recorded Time Tdap 12/07/2013 completed Not Available [facility] 06:11:22 COVID-19, mRNA, LNP-S, PF, 100 mcg/0.5mL dose or 50 mcg/0.25mL dose 07/01/2021 completed Not Available [facility] 06/18/2023 06:11:23 COVID-19 vaccine, vector-nr, rS-Ad26, PF, 0.5 mL 10/20/2020 completed Not Available [facility] 06/18/2023 06:11:23 COVID-19, mRNA, LNP-S, bivalent, PF, 30 mcg/0.3 mL dose 07/22/2022 completed Not Available [facility] 06/18/2023 06:11:23 COVID-19, mRNA, LNP-S, PF, giovany-sucrose, 30 mcg/0.3 mL 05/19/2023 completed Not Available [facility] 08/20/2023 05:31:15 Past Encounters Encounter ID Performer Location Encounter Start Date Encounter Closed Date Diagnosis/Indication Diagnosis SNOMED-CT Code [id number] KAMINI PRYOR APRN [address] [address] 03/21/2024 13:54:44 03/21/2024 14:46:42 Pruritic rash 28136455 Active or passive immunization 301665297 Attention deficit hyperactivity disorder 940740288 Health Concerns Section Related Observation LastModified by Organization Detai ls LastModified Time None Recorded Concern Status LastModified by Organization Details LastModified Time None Recorded Payers Encounter Date Sequence Insurance Name Policy Number Policy Herrera Covered Member ID Herrera Member ID Guarantor Name 03/21/2024 1 [employer]: [facility] Neetu Henderson [id number] Neetu Henderson Notes Date Note Type Note Provider Name and Address Organization Details Recorded Time 03/21/2024 text/html HPI Notes: Is he re for complaints of a rash. Was seen in the office on 02.16.24 for this rash by Dr Sood. The rash was under her axilla, she had described as itchy, was scratching and did scratch her face. Was seen in express care and they treated her with abx and steroid / antifungal cream. This cleared the infection to her face, but not in her axilla. Dr Sood gave her topical nystatin and oral diflucan [...] day, whenever it feels dry. KAMINI PRYOR, ECOLOGIST [address], [place], [address], [place] - [facility]. 03/21/2024 15:41:33 OBGyn Episode No OBEpisode recorded.
--- OUTSIDE RECORDS SUMMARY | 2024-03-28 15:57 | XMS_ITS | Continuity of Care Document ---
Author Organization [place] - [facility], [facility] Address [address] [place] [address] Assessment No assessment recorded. Plan of Treatment Reminders Order Date Submit Date Provider Last Modified By Organization Details Last Modified Time Details Appointments Office Visit 30 2023 10:30A M Not available Not available Not available Annual Wellness Exam 40 2023 02:20P M Not available Not available Not available Lab None recorded. Referral None recorded. Procedures None recorded. Surgeries None recorded. Imaging None recorded. Medication Orders nystatin 100,000 unit/gram topical cream 2023 024 [facility], [address] [place], [address], 03/21/2024 14:25:29 Diflucan 150 mg tablet 2023 024 [facility], [address] [place], [address], 03/21/2024 14:00:27 Patient TargetsNo targets recorded. Patient InstructionsNo instructions recorded. Reason for Referral None Reported. Problems Name Status Onset Date Resolution Date Notes Provider Name and Address Organization Details Recorded Time Migraine Active 201710/01/2021 - Comments only - Sharda Callahan [employer] - Not a significant issue at this time. Problem Code: G43.909; Problem Code Type: ICD-10; Not Available [facility] 05:11:50 Attention deficit hyperactivity disorder Active 201711/18/2022 - Comments only - Sharda Callahan [employer] - No concerns, UDS as expected today. Controled substance agreement completed. Rx for 3 months sent to pharmacy. 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 Asking for PT referral. Order placed. Oren Reeder. Asked that she call if she does not experience adequate management of her pain with PT Not Available [facility] 3 05:11:51 Counseling Completed 201709/15/2017 09/01/2017 - Comments only - Caitlin Mendiolaenger [employer] - - Here from [place] for establishment of care. She is due for a pap smear, as she reports it has been at least three years. Recommended she make an appt at her next convenience for a full annual with pap Problem Code: Z71.89; Problem Code Type: ICD-10; Not Available [facility] 3 05:11:51 Nutritional deficiency disorder Active 201709/08/2017 - Comments only - Caitlin Mendiolaenger [employer] - - Vegan. Will get CBC-D, ferritin, iron/TIBC, and B12 to ensure she is not deficient in anything. Encouraged her to take daily multivitamin instead of iron supplement alone, as she as at risk for more than just iron deficiency. Also reviewed healthy protein sources. She will try this Problem Code: E63.9; Problem Code Type: ICD-10; Not Available [facility] 3 05:11:51 Adult health examination Active 201710/01/2021 - Comments only - Sharda Callahan [employer] - Annual exam with papsmear completed at today's visit. Problem Code: Z00.00; Problem Code Type: ICD-10; Not Available [facility] 3 05:11:51 Menopause present Active 201803/29/2020 - Comments only - Sharda Callahan [employer] - Will decrease wellbutrin to 150mg daily [...] N95.1; Problem Code Type: ICD-10; Not Available [facility] 3 05:11:51 Generalized hyperhidrosis Active 201802/01/2019 - Comments only - Sharda FITZPATRICK - Neetu elects to obtain serum fractionated plasma metanephrines and evaluation of pheochromocyt funmilayo. Normal TSH, BMP and CBC completed 08/25/18. Problem Code: R61; Problem Code Type: ICD-10; Not Available [facility] 3 05:11:51 Fatigue Active 201811/18/2022 - Comments only - Sharda FITZPATRICK - Signifcant chronic fatigue likely contributing to poor mental health. Sleep apnea certainly plausible as a contributing cause. Will place referal to sleep clinic. Problem Code: R53.83; Problem Code Type: ICD-10; Not Available [facility] 3 05:11:51 Blood chemistry outside reference range Completed 201805/19/2023 Problem Code: R79.89; Problem Code Type: ICD-10; Not Available [facility] 4 05:35:56 Iron deficiency Active 201810/01/2021 - Comments only - Sharda FITZPATRICK - IRON/TIBC at todays visit due to excessive exercise intolerance. Does not regularly take iron. Problem Code: E61.1; Problem Code Type: ICD-10; Not Available [facility] 3 05:11:51 Anxiety disorder Active 201808/16/2019 - Comments only - Sharda FITZPATRICK - No changes made to bupropion XL 300mg daily. will add buspione 7.5mg twice daily. I reviewed with Neetu that this may be a helpful tool for her but that stress management would still be necessary. Problem Code: F41.9; Problem Code Type: ICD-10; Not Available [facility] 3 05:11:51 Irregular periods Active 202010/01/2021 - Comments only - Sharda FITZPATRICK - Significantly improved since starting OCP. Problem Code: N92.6; Problem Code Type: ICD-10; Not Available [facility] 3 05:11:52 Chronic pain Active 2021 Problem Code: G89.29; Problem Code Type: ICD-10; Not Available [facility] 3 05:11:52 History of SARS-CoV-2 Completed 202105/19/2023 Problem Code: Z86.16; Problem Code Type: ICD-10; Not Available [facility] 4 05:35:58 Ectasia of thoracic aorta Active 2021 Problem Code: I77.810; Problem Code Type: ICD-10; Not Available [facility] 3 05:11:52 condition affecting obstetrical care of mother Active 2022 Problem Code: O35.8xx0; Problem Code Type: ICD-10; Not Available [facility] 3 05:11:52 Obstructive sleep apnea syndrome Active 2022 Problem Code: G47.33; Problem Code Type: ICD-10; Not Available [facility] 3 05:11:52 Abnormal weight gain Completed 201810/11/2020 Problem Code: R63.5; Problem Code Type: ICD-10; Not Available [facility] 3 05:11:52 Localized eruption of skin Completed 201810/13/2019 Problem Code: R21; Problem Code Type: ICD-10; [address] [place], [address] , [facility]. 4 10:38:47 Disorder of skin appendage Completed 201710/13/2019 Problem Code: L73.9; Problem Code Type: ICD-10; Not Available [facility] 3 05:11:53 Arthralgia of the ankle and/or foot Completed 201710/01/2021 Problem Code: M25.571; Problem Code Type: ICD-10; Not Available [facility] 3 05:11:53 Palpitations Completed 201911/18/2022 Problem Code: R00.2; Problem Code Type: ICD-10; Not Available [facility] 3 05:11:53 Exposure to communicable disease Completed 201910/11/2020 Problem Code: Z20.9; Problem Code Type: ICD-10; Not Available [facility] 3 05:11:53 Right Achilles tendinitis Completed 202111/18/2022 Problem Code: M76.61; Problem Code Type: ICD-10; Not Available [facility] 3 05:11:53 Abnormal weight loss Completed 201911/18/2022 Problem Code: R63.4; Problem Code Type: ICD-10; Not Available [facility] 3 05:11:54 History of psychiatric disorder Completed 201705/05/2023 Problem Code: Z86.59; Problem Code Type: ICD-10; Not Available [facility] 3 05:11:54 Nonulcer dyspepsia Completed 201810/01/2021 Problem Code: K30; Problem Code Type: ICD-10; Not Available [facility] 3 05:11:54 Chest pain Completed 201911/18/2022 Problem Code: R07.89; Problem Code Type: ICD-10; Not Available [facility] 3 05:11:54 Major depressive disorder Active [address], [place], [address] , [facility] 3 14:11:52 Candidiasis of skin Active [address] [place], [address] , [facility] 4 11:46:32 Dermal mycosis Active [address], [place], [address] , [facility] 4 10:38:03 Localized eruption of skin Active 2023 Problem Code: R21; Problem Code Type: ICD-10; [address], [place], [address] , [facility] 4 10:38:47 Pruritic rash Active 2023 KAMINI PRYOR APRN [address], [place], [address] , [facility] 4 14:18:12 Leukocytosis Active [address], [place], [address] , [facility] 4 13:08:58 Problem Notes None recorded. Medical [...] Updated DateTime 4 166.37 cm 35.9 kg/m2 93166.7 3 g 97.6 [degF] 97 % 97 % 93 /min 18 /min 120 mm[Hg] 80 mm[Hg] JONA MANNING RN [facility] 11:25:39 Social History Question Answer Notes LastModified by Organizat ion Details LastModified Time Tobacco Smoking Status Never Smoker JONA MANNING RN [facility], [facility] 02/16/2024 11:27:16 1) Date Of Last VPMS Check? 03/21/2024 Information not available 03/21/2024 2) VPMS Findings No Concerns Information not available 03/21/2024 4) Daily MME 0 Information not available 03/21/2024 What Was The Date Of Your Most Recent Tobacco Screening? 02/16/2024 [email or web address] Information not available 02/16/2024 Has Tobacco Cessation Counseling Been Provided? No [email or web address] Information not available 02/16/2024 Do You Or Have You Ever Used Any Other Forms Of Tobacco Or Nicotine? No [email or web address] Information not available 02/16/2024 Sex: Female Functional [...] 50 mcg/0.25mL dose 07/01/2021 completed Not Available [facility] 06/18/2023 06:11:23 COVID-19 vaccine, vector-nr, rS-Ad26, PF, 0.5 mL 10/20/2020 completed Not Available [facility] 06/18/2023 06:11:23 COVID-19, mRNA, LNP-S, bivalent, PF, 30 mcg/0.3 mL dose 07/22/2022 completed Not Available [facility] 06/18/2023 06:11:23 COVID-19, mRNA, LNP-S, PF, giovany-sucrose, 30 mcg/0.3 mL 05/19/2023 completed Not Available [facility] 08/20/2023 05:31:15 Past Encounters Encounter ID Performer Location Encounter Start Date Encounter Closed Date Diagnosis/Indication Diagnosis SNOMED-CT Code [id number] RAUL BLOOD MD [address] [address] 02/16/2024 10:55:23 02/16/2024 11:43:24 Candidiasis of skin [id number] Health Concerns Section Related Observation LastModified by Organization Detai ls LastModified Time None Recorded Concern Status LastModified by Organization Details LastModified Time None Recorded Payers Encounter Date Sequence Insurance Name Policy Number Policy Herrera Covered Member ID Herrera Member ID Guarantor Name 02/16/2024 1 [place] [employer] [place] Neetu Henderson [id number] Neetu Henderson Notes Date Note Type Note Provider Name and Address Organization Details Recorded Time 02/16/2024 text/html HPI Notes: Alyssia is a 33-year-old young woman who comes in today because she did develop a yeast rash underneath her axilla. After being out in the heat she became very itchy and scratched at it and at her face and developed a bacterial infection on top of it. She was seen in [facility] and they treated her with an [...] headaches. RAUL BLOOD MD [address], [place], [address], [facility]. 02/16/2024 11:49:22 OBGyn Episode No OBEpisode recorded.
--- OUTSIDE RECORDS SUMMARY | 2024-03-28 15:58 | XMS_ITS ---
Author Organization Unknown Address [address] [place] [phone] Phone Care Team Providers Care Commodities Clerk Name Role Phone ALEKSANDR Bills Attending Unavailable Social History Type Status Start Date End Date Code Code Syst em Smoking History Unknown if ever smoked [id number] Sex Female Hospital Discharge Instructions Should you have any questions prior to discharge, please contact a member of your healthcare team. If you have left the hospital and have any questions, please contact your primary care physician. Reason For Referral No Data Found Plan of Treatment No Data Found Encounters Encounter Diagnosis Start Date Code Code Sys tem Sruthi-Danlos syndrome, unspecified 10/17/2021 SNOMED-CT Personal Care Team Section Performer Name Performer Role Active Date Inactive Da te
== END 2024-03-28 15:49 | disposition home or self-care (01) ==
LOC: LBO 15:55
PROVIDERS: PCP Nurse Practitioner Family; Visit Provider Nurse Practitioner Family
DX: L28.2 Other prurigo (principal)
CPT/HCPCS: 36415; 80053; 85025

== ENCOUNTER 2024-03-29 15:17 | Outpatient (REF) | payer BC, SELFPAY ==
--- NOTE | 2024-03-29 11:30 | SKI_PTH ---
PATIENT: Neetu Henderson LOC: [facility] U#:[id number] AGE/SX: 34/F ROOM: RE03/29/[address]: Sharda Callahan : 1990 BED: DIS: 03/29/2024 SPEC #: [id number] RECD: 03/29/24 16:54 STATUS: NADINE REAleks #: [id number] PHIL: 03/29/24 11:[address]: Sharda Callahan DEPT: Surgical Specimen RECD BY: Emelia Zazueta Tissues: 1 - SKIN BIOPSY(SHAVE/PUNCH) 2 - SKIN BIOPSY(SHAVE/PUNCH) Procedures: SKIN LEVEL 4 SPECIAL STAIN 1 Comments: [id number]
== END 2024-03-29 15:18 | disposition home or self-care (01) ==
LOC: NCHCN 15:17
PROVIDERS: PCP Nurse Practitioner Family; Visit Provider Nurse Practitioner Family
DX: L28.2 Other prurigo (principal)
CPT/HCPCS: 88305; 88312

== ENCOUNTER 2024-06-28 10:30 | Outpatient (REF) | payer BC, SELFPAY ==
[2024-06-28 15:01] LABS: HGB 13.3 g/dL (11.2-15.7); MCH 30.6 pg (27.0-33.0); MCHC 33.3 % (32.0-36.0); MCV 92 fL (80-95); MPV 9.1 fL (8.0-11.0); Platelet Count 412 10^3/uL (130-400); RBC 4.35 10^6/uL (3.93-5.22); RDW 12.2 % (11.7-14.6); WBC 10.01 10^3/uL (4.4-10.8)
[2024-06-28 15:34] LABS: Calculated LDL 68 mg/dL (<100); Cholesterol 162 mg/dL (<200); Ferritin 92 ng/mL (8-252); HDL Cholesterol 58 mg/dL (40-60); TSH (W/Ref FT4) 1.22 uIU/mL (0.36-3.74); Triglyceride 183 mg/dL (<150)
[2024-06-28 15:55] LABS: Iron 38 ug/dL (50-170); Total Iron Binding Capacity 385 ug/dL (250-450); Transferrin Sat 10 % (15-50)
== END 2024-06-28 10:31 | disposition home or self-care (01) ==
LOC: NCHCN 10:30
PROVIDERS: PCP Nurse Practitioner Family; Visit Provider Nurse Practitioner Family
DX: Z00.00 Encounter for general adult medical examination without abnormal findings (principal); R53.83 Other fatigue
CPT/HCPCS: 80061; 85027; 82728; 83540; 83550; 84443